=== PATIENT | female | born 1960 | race Caucasian/White ===

== ENCOUNTER 2017-06-16 14:40 | Outpatient (CLI) | payer OTHER ==
--- NOTE | 2017-06-17 09:16 | XRAY Report ---
COMPLETE CERVICAL SPINE: 06/16/2017 CLINICAL INDICATION: Arm and neck pain. FINDINGS: AP, lateral, oblique, and odontoid views of the cervical spine demonstrate moderate degene rative disk and facet disease, with degenerative anterolisthesis of C4 on C5 by approximately 4 mm. T here is bilateral osseous neural foraminal encroachment, from C4-5 to C6-7 bilaterally. There is no e vidence of acute fracture or subluxation. The prevertebral soft tissues are unremarkable. IMPRESSION: MODERATE DEGENERATIVE CHANGES, WITH BILATERAL OSSEOUS NEURAL FORAMINAL NARROWING AND DEG ENERATIVE ANTEROLISTHESIS OF C4 ON C5. JOB #: [id number] EXT JOB #:[id number]
== END 2017-06-16 14:41 | disposition home or self-care (01) ==
LOC: DI.S 14:40
PROVIDERS: ATTEND Nurse Practitioner Family
DX: M50.321 Other cervical disc degeneration at C4-C5 level (principal); M79.602 Pain in left arm
CPT/HCPCS: 72040

== ENCOUNTER 2017-08-16 13:31 | Outpatient (CLI) | payer OTHER ==
--- NOTE | 2017-08-16 16:27 | XRAY Report ---
TWO-VIEW CHEST: 08/16/2017 CLINICAL INDICATION: Fever, congestion. FINDINGS: Frontal and lateral views of the chest demonstrate a normal cardiac silhouette. The lungs are hyperinflated. There is a calcified granuloma in the right upper lobe. No focal infiltrate, ef fusion, or pneumothorax is present. IMPRESSION: HYPERINFLATION, SUGGESTIVE OF COPD. NO EVIDENCE OF ACUTE CARDIOPULMONARY DISEASE. JOB #: [id number] EXT JOB #:[id number]
== END 2017-08-16 13:32 | disposition home or self-care (01) ==
LOC: DI.S 13:31
PROVIDERS: ATTEND Nurse Practitioner Family
DX: R50.9 Fever, unspecified (principal); R09.89 Other specified symptoms and signs involving the circulatory and respiratory systems
CPT/HCPCS: 71020

== ENCOUNTER 2017-11-16 15:53 | Outpatient (CLI) | payer OTHER ==
--- NOTE | 2017-11-18 18:25 | Mammography Report ---
DIGITAL SCREENING MAMMOGRAM: 11/16/2017 CLINICAL INDICATION: A 56-year-old for screening. COMPARISON: 08/2014, 10/2012, 10/2011. TECHNIQUE: Routine CC and MLO projections were obtained of the breasts. FINDINGS: Scattered fibroglandular tissue is present within the breasts. There are no dominant masses, suspicious microcalcifications, or secondary signs of malignancy. In comparison to the previous studies, there are no significant changes. ASSESSMENT: NO MAMMOGRAPHIC EVIDENCE OF MALIGNANCY. NO SIGNIFICANT INTERVAL CHANGES. RECOMMENDATION: Screening mammography is recommended annually. BIRADS category 1 - negative. STANDARD QUALIFYING STATEMENTS: 1. This examination was reviewed with the aid of Computed-Aided Detection (CAD). 2. A negative or benign imaging report should not delay biopsy if clinically suspicious findings are present. Consider surgical consultation if warranted. More than 5% of cancers are not identified by imaging. 3. Dense breasts may obscure an underlying neoplasm. TD: 11/18/2017 18:24
== END 2017-11-16 15:54 | disposition home or self-care (01) ==
LOC: DI.S 15:53
PROVIDERS: ATTEND Physician Assistant
DX: Z12.31 Encounter for screening mammogram for malignant neoplasm of breast (principal)
CPT/HCPCS: 77067

== ENCOUNTER 2019-09-18 13:50 | Outpatient (CLI) | payer OTHER ==
--- NOTE | 2019-09-19 17:16 | XRAY Report ---
Reason: PAIN IN LEFT KNEE Procedure Date: 09/18/2019 Accession Number: [id number] / [id number] Procedure: XRS - Knee 4 View LT CPT Code: Final Report FULL RESULT: EXAM: LEFT KNEE RADIOGRAPHY EXAM DATE: 09/18/2019 02:26 PM. CLINICAL HISTORY: PAIN IN LEFT KNEE. COMPARISON: KNEE 4 VIEW RT 09/18/2019 2:29 PM. TECHNIQUE: 4 views. FINDINGS: Bones: Normal. No fractures or bone lesions. Joints: Normal. No large effusion. No subluxations. Soft Tissues: Normal. No soft tissue swelling. IMPRESSION: Negative left knee radiography. RADIA
--- NOTE | 2019-09-19 17:16 | XRAY Report ---
Reason: PAIN IN RIGHT KNEE Procedure Date: 09/18/2019 Accession Number: [id number] / [id number] Procedure: XRS - Knee 4 View RT CPT Code: Final Report FULL RESULT: EXAM: RIGHT KNEE RADIOGRAPHY EXAM DATE: 09/18/2019 02:26 PM. CLINICAL HISTORY: PAIN IN RIGHT KNEE. COMPARISON: None. TECHNIQUE: 4 views. FINDINGS: Bones: Normal. No fractures or bone lesions. Joints: Normal. No large effusion. No subluxations. Soft Tissues: Normal. No soft tissue swelling. IMPRESSION: Negative right knee radiography. RADIA
== END 2019-09-18 13:51 | disposition home or self-care (01) ==
LOC: DI.S 13:50
PROVIDERS: ATTEND Physician Assistant
DX: M25.561 Pain in right knee (principal); M25.562 Pain in left knee

== ENCOUNTER 2020-06-12 10:58 | Outpatient (CLI) | payer BC ==
--- NOTE | 2020-06-13 06:36 | Mammography Report ---
BILATERAL DIGITAL SCREENING MAMMOGRAM 3D/2D: 06/12/2020 CLINICAL: Routine screening. Comparison is made to exams dated: 08/24/2014 mammogram, 11/16/2017 mammogram, 10/17/2012 mammogram, mammogram, and 01/27/2008 mammogram - [facility]. There are scattered fibro glandular elements in both breasts. No significant masses, calcifications, or other findings are seen in either breast. There has been no significant interval change. IMPRESSION: NEGATIVE There is no mammographic evidence of malignancy. A 1 year screening mammogram is recommended. This exam was interpreted at Station ID: [id number]. NOTE: For mammograms, a report in lay terms will be sent to the patient. Approximately 15% of breast malignancies will not be visualized mammographically. In the management of a palpable breast mass, a negative mammogram must not discourage biopsy of a clinically suspicious lesion. Electronically Signed By: Stevie Liao M.D., [email or web address]:06/12/2020 13:07:42 ACR BI-RADS Category 1: Negative 3341F PARENCHYMAL PATTERN: (A) - The breast(s) demonstrate(s) scattered fibroglandular densities. BI-RADS CATEGORY: (1) - 1 RECOMMENDATION: (ANNUAL) - Recommend routine annual screening mammography. [id number] 1 year screening LATERALITY: (B)
== END 2020-06-12 10:59 | disposition home or self-care (01) ==
LOC: DI 10:58
DX: Z12.31 Encounter for screening mammogram for malignant neoplasm of breast (principal)
CPT/HCPCS: 77063; 77067

== ENCOUNTER 2023-06-22 12:57 | Outpatient (CLI) | payer MEDICARE ==
--- NOTE | 2023-06-23 10:23 | Mammography Report ---
BILATERAL DIGITAL SCREENING MAMMOGRAM 3D/2D: 06/22/2023 CLINICAL: Routine screening. Family history of breast cancer. Comparison is made to exams dated: 06/12/2020 mammogram, 11/16/2017 mammogram, and 08/24/2014 mammogram - [facility]. There are scattered areas of fibroglandular density in both breasts (category b / 25%-50% glandular t issue). No significant masses, calcifications, or other findings are seen in either breast. There has been no significant interval change. IMPRESSION: NEGATIVE There is no mammographic evidence of malignancy. A 1 year screening mammogram is recommended. Based on the Tyrer Cuzick model (a risk assessment model) the patients lifetime risk is 10.6% and he r 10 year risk is 4.9%. According to the ACR, ACS, and NCCN guidelines, an annual breast MRI exam sadiq ng with mammogram is recommended if the patients lifetime risk is 20% or greater. This exam was interpreted at Station ID: [id number]. NOTE: For mammograms, a report in lay terms will be sent to the patient. Approximately 15% of breast malignancies will not be visualized mammographically. In the management of a palpable breast mass, a negative mammogram must not discourage biopsy of a clinically suspicious lesion. Electronically Signed By: Geovanna quinonez/cyn:06/22/2023 14:31:03 letter sent: No_Letter ACR BI-RADS Category 1: Negative 3341F PARENCHYMAL PATTERN: (A) - The breast(s) demonstrate(s) scattered fibroglandular densities. BI-RADS CATEGORY: (1) - 1 Mammogram [id number] 1 year screening LATERALITY: (B)
== END 2023-06-22 12:58 | disposition home or self-care (01) ==
LOC: DI.S 12:57
DX: Z12.31 Encounter for screening mammogram for malignant neoplasm of breast (principal); Z80.3 Family history of malignant neoplasm of breast

== ENCOUNTER 2024-01-01 00:38 | Emergency (ER) | payer MEDICARE, MEDICAID ==
[2024-01-01 01:29] LABS: BASOPHILS % (AUTO) 0.2 %; EOSINOPHILS % (AUTO) 0.1 %; HGB - HEMOGLOBIN 12.7 g/dL (12.0-16.0); LYMPHOCYTES # (AUTO) 1.1 10^3/uL (1.5-3.5); LYMPHOCYTES % (AUTO) 8.2 %; MEAN CORPUSCULAR HEMOGLOBIN 28.9 pg (27.0-31.0); MEAN CORPUSCULAR HGB CONC 33.4 g/dL (32.0-36.0); MEAN CORPUSCULAR VOLUME 86.4 fL (81.0-99.0); MEAN PLATELET VOLUME 10.6 fL (7.9-10.8); MONOCYTES # (AUTO) 1.1 10^3/uL (0.0-1.0); MONOCYTES % (AUTO) 8.5 %; NEUTROPHILS % (AUTO) 82.5 %; PLT - PLATELET COUNT 543 10^3/uL (130-450); RED CELL DISTRIBUTION WIDTH 12.7 % (12.0-15.0); WHITE BLOOD COUNT 13.3 x10^3/uL (4.8-10.8)
[2024-01-01 01:35] LABS: LIPASE < 10 U/L (11-82)
[2024-01-01] MEDS: SODIUM CHLORIDE 0.9% 1,000 ML IV STA (01:37)
[2024-01-01] MEDS: FAMOTIDINE 20 MG/2 ML VIAL IVP STA (01:37)
[2024-01-01] MEDS: HYDROmorphone 1 MG/ML CARPUJECT IVP STA ×2 (01:37→03:30)
[2024-01-01] MEDS: ONDANSETRON 4 MG/2 ML VIAL IVP STA ×2 (01:39→03:29)
[2024-01-01 01:45] LABS: ALBUMIN 4.1 g/dL (3.2-5.5); ALBUMIN/GLOBULIN RATIO 1.2 (1.0-2.2); ALKALINE PHOSPHATASE 91 IU/L (42-121); ALT ALANINE AMINOTRANSFERASE 13 IU/L (10-60); AST ASPARTATE AMINOTRANSFERASE 14 IU/L (10-42); BILIRUBIN,TOTAL 0.6 mg/dL (0.2-1.0); BUN - BLOOD UREA NITROGEN 38 mg/dL (6-20); CALCIUM 10.5 mg/dL (8.5-10.3); CARBON DIOXIDE - CO2 25 mmol/L (21-32); CHLORIDE 89 mmol/L (101-111); GLUCOSE 143 mg/dL (74-104); POTASSIUM 3.1 mmol/L (3.5-4.5); SODIUM 130 mmol/L (135-145); TOTAL PROTEIN 7.6 g/dL (6.4-8.9)
[2024-01-01 02:00] LABS: GFR - MDRD 56 (>89)
[2024-01-01] MEDS: POTASSIUM CHLORIDE 20 MEQ/15 ML UDC PO STA (02:47)
[2024-01-01] MEDS: POTASSIUM CHLOR 10 MEQ/100 ML 10 MEQ/100 ML BAG IV STA (02:47)
[2024-01-01] MEDS: GABAPENTIN 100 MG CAPSULE PO STA (03:30)
--- NOTE | 2024-01-01 03:38 | ED Physician Documentation ---
History of Present Illness - Stated complaint Stated Complaint: VOMITING/R SHOULDER PX - Chief complaint Chief Complaint: Abd Pain - History obtained from History obtained from: Patient, Family (daughter) - Additonal information Additional information: 63yF with pmh scoliosis, fibromyalgia, p/w n/v X 4 days and inability to take her medications. also with subjective fever/chills. denies diarrhea. no blood in emesis. denies abdominal pain but states her fibromyalgia has been worse than usual. PD PAST MEDICAL HISTORY - Past Medical History Past Medical History: Yes Cardiovascular: Hypertension Respiratory: COPD, Other Endocrine/Autoimmune: None GI: None : None HEENT: None Psych: Depression, Anxiety Musculoskeletal: Scoliosis Derm: None Other Past Medical History: fibromyalgia - Past Surgical History Past Surgical History: Yes General: Appendectomy, Other Ortho: Rotator cuff repair, Arthroscopic surgery /[employer]: Tubal ligation, Hysterectomy, Oophrectomy - Present Medications Home Medications: Ambulatory Orders Medication Instructions Recorded Confirmed Guaifenesin mg PO DAILY 08/18/13 08/18/13 Hydrocodone/Acetaminophen 0.5 - 1 each PO Q4H PRN 08/18/13 08/18/13 [Hydrocodon-Acetaminophen 5-500] Ibuprofen 600 mg PO BID PRN 08/18/13 08/18/13 Multivitamin [Multivitamins] 1 each PO DAILY 08/18/13 08/18/13 Vitamin B Complex [Super B-50 1 each PO DAILY 08/18/13 08/18/13 Complex] Vitamin E 400 unit PO DAILY 08/18/13 08/18/13 Zinc [Zinc Chelated] 50 mg PO DAILY 08/18/13 08/18/13 Acetaminophen [Tylenol] 650 mg PO Q6H PRN 08/21/13 08/21/13 Diclofenac Sodium 50 mg PO BID #40 04/18/23 Diclofenac Sodium 50 mg PO BID #40 tab 04/18/23 hydroCHLOROthiazide [Hydrodiuril] 25 mg PO DAILY 30 Days #30 tablet 04/18/23 oxyCODONE [Roxicodone] 5 mg PO Q6H PRN #18 tablet 04/18/23 Promethazine Sup [Phenergan Supp] 12.5 mg IN Q4H PRN #10 supp 01/01/24 - Allergies Allergies/Adverse Reactions: Allergies Allergy/AdvReac Type Severity Reaction Status Date / Time adhesive Allergy rash/bliste Verified 01/01/24 01:06 rs codeine [Codeine] Allergy swelling/it Verified 01/01/24 01:06 ch diphenhydramine HCl * Allergy Anxiety Verified 01/01/24 01:06 [From Benadryl] erythromycin base Allergy Unknown Verified 01/01/24 01:06 [From Erythrocin] naproxen Allergy Anxiety Verified 01/01/24 01:06 - Social History Does the pt smoke?: Yes Smoking Status: Current every day smoker Does the pt drink ETOH?: No Does the pt have substance abuse?: No - Immunizations Immunizations are current?: Yes - POLST Patient has POLST: No PD ED PE NORMAL - Vitals Vital signs reviewed: Yes - General General: Alert and oriented X 3, No acute distress, Well developed/nourished - HEENT HEENT: Atraumatic, PERRL, EOMI - Neck Neck: Supple, no meningeal sign - Cardiac Cardiac: RRR - Respiratory Respiratory: No respiratory distress, Clear bilaterally - Abdomen Abdomen: Non tender, Non distended - Back Back: Other (severe scoliosis) - Derm Derm: Normal color, Warm and dry - Extremities Extremities: No deformity Results - Vitals Vitals: Vital Signs - 24 hr 01/01/24 01/01/24 01:02 01:06 Temperature 36.9 C Heart Rate 109 H 110 H Respiratory 18 19 Rate Blood Pressure 129/90 H 129/90 H O2 Saturation 93 98 Oxygen O2 Source Room air - Labs Labs: Laboratory Tests 01/01/24 01/01/24 01:10 01:10 WBC 13.3 H RBC 4.40 Hgb 12.7 Hct 38.0 MCV 86.4 MCH 28.9 MCHC 33.4 RDW 12.7 Plt Count 543 H MPV 10.6 Neut # (Auto) 11.0 H Lymph # (Auto) 1.1 L [place] # (Auto) 1.1 H Eos # (Auto) 0.0 Baso # (Auto) 0.0 Absolute Nucleated RBC 0.00 Nucleated RBC % 0.0 Sodium 130 L Potassium 3.1 L Chloride 89 L Carbon Dioxide 25 Anion Gap 16.0 H BUN 38 H Creatinine 1.0 Estimated GFR (MDRD) 56 L Glucose 143 H Calcium 10.5 H Total Bilirubin 0.6 AST 14 ALT 13 Alkaline Phosphatase 91 Total Protein 7.6 Albumin 4.1 Globulin 3.5 Albumin/Globulin Ratio 1.2 Lipase < 10 L PD Medical Decision Making - ED course ED course: 63yF p/w nbnb n/v X 4 days with subjective fever/chills, found to have wbc 13.3. physical exam including abdominal exam was benign, pointing to likely viral gastroenteritis as the cause. She does have some thrombocytosis, likely reactive with PLT 543. She was given IVF for hyponatremia likely due to dehydration, and also received potassium supplementation for K 3.1. Advised recheck with her pcp. nausea and pain improved s/p dilaudid and zofran. plan to f/u pm&r for pain management of her shoulder and back/neck pain. return precautions given. Departure - Departure Disposition: 01 Home, Self Care Clinical Impression: Nausea, Fibromyalgia Condition: Stable Instructions: Nausea Vomit Control Follow-Up: Ernestina Bustillos MD [Physician No Access] - Prescriptions: Promethazine Sup [Phenergan Supp] 12.5 mg IN Q4H PRN #10 supp PRN Reason: Nausea / Vomiting Comments: You were seen in the emergency department for medical evaluation. Prescription sent to [facility] in [place]. 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 I am providing a referral to a physical medicine and rehabilitation (PM&R) physician from the [facility]. If they are not in network, you can call your insurance or ask your primary care provider for a referral to PM&R. There are many well trained specialists in our area that may be able to help. Please follow-up with your primary care provider as well and return to the emergency department if you have any new or worsening symptoms or other concerns.
[2024-01-01 04:48] VITALS: BP 106/85; O2SAT 94
== END 2024-01-01 04:10 | disposition home or self-care (01) ==
LOC: ED 00:38
DX: M79.7 Fibromyalgia (principal); R11.0 Nausea; I10 Essential (primary) hypertension; F17.200 Nicotine dependence, unspecified, uncomplicated
CPT/HCPCS: 36415; 80053; 83690; 83735; 85025; 96374; 96375; 96376; 99284; 99285; A9270; J1170

== ENCOUNTER 2024-01-02 15:26 | Outpatient (CLI) | payer MEDICARE | END 2024-01-02 23:59 | disposition critical access hospital (66) | LOC: EMS 15:26 | DX: R06.00 Dyspnea, unspecified (principal); M54.9 Dorsalgia, unspecified; M25.511 Pain in right shoulder | CPT/HCPCS: A0425; A0429 ==

== ENCOUNTER 2024-01-02 16:03 | Inpatient (IN) | payer MEDICARE ==
--- NOTE | 2024-01-02 16:38 | ED Physician Documentation ---
PD HPI DYSPNEA - Stated complaint Stated Complaint: SOA - Chief complaint Chief Complaint: Resp - History obtained from History obtained from: Patient, Family - History of Present Illness Pain level max: 0 Pain level now: 0 Improved by: O2, Rest Associated symptoms: Wheezing. No: Fever, Cough, Hemoptysis, Chest pain / discomfort, Palpitations, Diaphoresis, Bilateral edema, Unilateral edema Similar symptoms before: Diagnosis (copd) - Additional information Additional information: 63-year-old female presents to the emergency department with increasing dyspnea over the past several days. She states that she saw her PCP and was prescribed albuterol and Advair discus. History of COPD. She states that she has the albuterol but no spacer. She also states that the Advair has not arrived as she is waiting for it to come in the mail. She called 911 for difficulty breathing. EMS placed her on oxygen but no other treatment was given. No fevers. No changes in her cough. No congestion. Worse with movement, better with rest. No chest pain. No calf pain or swelling. She states that she quit smoking 4 days ago. 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, Hysterectomy, Oophrectomy - Present Medications Home Medications: Ambulatory Orders Medication Instructions Recorded Confirmed Guaifenesin mg PO DAILY 08/18/13 08/18/13 Hydrocodone/Acetaminophen 0.5 - 1 each PO Q4H PRN 08/18/13 08/18/13 [Hydrocodon-Acetaminophen 5-500] Ibuprofen 600 mg PO BID PRN 08/18/13 08/18/13 Multivitamin [Multivitamins] 1 each PO DAILY 08/18/13 08/18/13 Vitamin B Complex [Super B-50 1 each PO DAILY 08/18/13 08/18/13 Complex] Vitamin E 400 unit PO DAILY 08/18/13 08/18/13 Zinc [Zinc Chelated] 50 mg PO DAILY 08/18/13 08/18/13 Acetaminophen [Tylenol] 650 mg PO Q6H PRN 08/21/13 08/21/13 Diclofenac Sodium 50 mg PO BID #40 04/18/23 Diclofenac Sodium 50 mg PO BID #40 tab 04/18/23 hydroCHLOROthiazide [Hydrodiuril] 25 mg PO DAILY 30 Days #30 tablet 04/18/23 oxyCODONE [Roxicodone] 5 mg PO Q6H PRN #18 tablet 04/18/23 Promethazine Sup [Phenergan Supp] 12.5 mg MO Q4H PRN #10 supp 01/01/24 - Allergies Allergies/Adverse Reactions: Allergies Allergy/AdvReac Type Severity Reaction Status Date / Time adhesive Allergy rash/bliste Verified 01/02/24 16:17 rs codeine [Codeine] Allergy swelling/it Verified 01/02/24 16:17 ch diphenhydramine HCl * Allergy Anxiety Verified 01/02/24 16:17 [From Benadryl] erythromycin base Allergy Unknown Verified 01/02/24 16:17 [From Erythrocin] naproxen Allergy Anxiety Verified 01/02/24 16:17 - Social History Does the pt smoke?: Yes Smoking Status: Current every day smoker Does the pt drink ETOH?: No Does the pt have substance abuse?: No - Immunizations Immunizations are current?: Yes - POLST Patient has POLST: No PD ED PE NORMAL - Vitals Vital signs reviewed: Yes - General General: Alert and oriented X 3, No acute distress - HEENT HEENT: PERRL, Moist mucous membranes - Neck Neck: Supple, no meningeal sign - Cardiac Cardiac: RRR - Respiratory Respiratory: Other (Absent breath sounds on the right, diminished breath sounds on the left) - Abdomen Abdomen: Soft, Non tender, Non distended - Derm Derm: Warm and dry - Extremities Extremities: No edema, No calf tenderness / cord - Neuro Neuro: Alert and oriented X 3 - Psych Psych: Normal mood, Normal affect Results - Vitals Vitals: Vital Signs - 24 hr 01/02/24 01/02/24 01/02/24 16:05 16:09 16:14 Temperature 36.6 C Heart Rate 99 Respiratory 22 Rate Blood Pressure 109/83 H O2 Saturation 86 L 92 85 L If not protocol : Oxygen Flow, liters/minute 01/02/24 01/02/24 01/02/24 16:15 16:50 19:00 Temperature Heart Rate 96 98 Respiratory 28 H 20 Rate Blood Pressure 110/82 H O2 Saturation 93 94 If not protocol 2 2 2 : Oxygen Flow, liters/minute Oxygen O2 Source Nasal cannula Oxygen Flow Rate 2 - EKG (time done) 1657 EKG releavant findings:: EKG personally interpreted by author of this note. Relevant findings are: Rate: Rate (enter#) (95) Rhythm: NSR [place]: Normal Intervals: Normal MO QRS: Normal Ischemia: Normal ST segments, Q waves (v1-2) - Labs Labs: Laboratory Tests 01/02/24 01/02/24 01/02/24 16:41 16:41 16:41 WBC 9.5 RBC 3.53 L Hgb 10.2 L Hct 31.7 L MCV 89.8 MCH 28.9 MCHC 32.2 RDW 13.1 Plt Count 423 MPV 9.7 Neut # (Auto) 7.5 H Lymph # (Auto) 1.0 L [place] # (Auto) 0.9 Eos # (Auto) 0.0 Baso # (Auto) 0.1 Absolute Nucleated RBC 0.00 Nucleated RBC % 0.0 Sodium 132 L Potassium 3.0 L Chloride 93 L Carbon Dioxide 29 Anion Gap 10.0 BUN 39 H Creatinine 1.3 Estimated GFR (MDRD) 41 L Glucose 115 H Calcium 9.6 Total Bilirubin 0.4 AST 18 ALT 17 Alkaline Phosphatase 77 Troponin I High Sens B-Natriuretic Peptide 125 H Total Protein 6.4 Albumin 3.5 Globulin 2.9 Albumin/Globulin Ratio 1.2 Nasal Adenovirus (PCR) Nasal B. parapertussis DNA (PCR) Nasal Coronavir 229E PCR Nasal Coronavir HKU1 PCR Nasal Coronavir NL63 PCR Nasal Coronavir OC43 PCR Nasal Enterovir/Rhinovir PCR Nasal Influenza B PCR Nasal Influenza A PCR Nasal Parainfluen 1 PCR Nasal Parainfluen 2 PCR Nasal Parainfluen 3 PCR Nasal Parainfluen 4 PCR Nasal RSV (PCR) Nasal B.pertussis DNA PCR Nasal C.pneumoniae (PCR) Eusebio Human Metapneumo PCR Nasal M.pneumoniae (PCR) Nasal SARS-CoV-2 (PCR) 01/02/24 01/02/24 16:41 16:53 WBC RBC Hgb Hct MCV MCH MCHC RDW Plt Count MPV Neut # (Auto) Lymph # (Auto) [place] # (Auto) Eos # (Auto) Baso # (Auto) Absolute Nucleated RBC Nucleated RBC % Sodium Potassium Chloride Carbon Dioxide Anion Gap BUN Creatinine Estimated GFR (MDRD) Glucose Calcium Total Bilirubin AST ALT Alkaline Phosphatase Troponin I High Sens 12.8 B-Natriuretic Peptide Total Protein Albumin Globulin Albumin/Globulin Ratio Nasal Adenovirus (PCR) NOT DETECTED Nasal B. parapertussis DNA (PCR) NOT DETECTED Nasal Coronavir 229E PCR NOT DETECTED Nasal Coronavir HKU1 PCR NOT DETECTED Nasal Coronavir NL63 PCR NOT DETECTED Nasal Coronavir OC43 PCR NOT DETECTED Nasal Enterovir/Rhinovir PCR NOT DETECTED Nasal Influenza B PCR NOT DETECTED Nasal Influenza A PCR NOT DETECTED Nasal Parainfluen 1 PCR NOT DETECTED Nasal Parainfluen 2 PCR NOT DETECTED Nasal Parainfluen 3 PCR NOT DETECTED Nasal Parainfluen 4 PCR NOT DETECTED Nasal RSV (PCR) NOT DETECTED Nasal B.pertussis DNA PCR NOT DETECTED Nasal C.pneumoniae (PCR) NOT DETECTED Eusebio Human Metapneumo PCR NOT DETECTED Nasal M.pneumoniae (PCR) NOT DETECTED Nasal SARS-CoV-2 (PCR) NOT DETECTED - Rads (name of study) CT chest Relevant Findings:: Final report received, See rad report Chest x-ray Relevant Findings:: Final report received, See rad report PD Medical Decision Making - ED course Complexity details: reviewed results, re-evaluated patient, considered differential, d/w patient, d/w legal consultant Reviewed Lab Results: Patient's high sensitive troponin and BNP are negative. Respiratory PCR is negative as well. ED course: Patient is a 63-year-old female who presents to the emergency department with increasing dyspnea over the past several days. She was given a DuoNeb treatment here. Chest x-ray reveals a large right-sided pleural effusion. CT chest confirms this. She is in no respiratory distress at this time, but is requiring supplemental oxygen. We will admit the patient for thoracentesis tomorrow and further evaluation of the pleural fluid. Discussed the case with the hospitalist Dr. Kaur, who graciously accepts. This document was made in part using voice recognition software. While efforts are made to proofread this document, sound alike and grammatical errors may occur. Departure - Departure Disposition: 64 [facility] DC/Xfer Clinical Impression: Pleural effusion, Hypoxia COPD (chronic obstructive pulmonary disease) Qualifiers: COPD type: unspecified COPD Qualified Code(s): J44.9 - Chronic obstructive pulmonary disease, unspecified Condition: Stable Discharge Date/Time: 01/02/24 20:31
[2024-01-02] MEDS: predniSONE 20 MG TABLET PO STA (16:41)
[2024-01-02 16:46] LABS: BASOPHILS # (AUTO) 0.1 10^3/uL (0.0-0.1); BASOPHILS % (AUTO) 0.6 %; EOSINOPHILS % (AUTO) 0.4 %; HCT - HEMATOCRIT 31.7 % (37.0-47.0); HGB - HEMOGLOBIN 10.2 g/dL (12.0-16.0); LYMPHOCYTES % (AUTO) 10.8 %; MEAN CORPUSCULAR HEMOGLOBIN 28.9 pg (27.0-31.0); MEAN CORPUSCULAR HGB CONC 32.2 g/dL (32.0-36.0); MEAN CORPUSCULAR VOLUME 89.8 fL (81.0-99.0); MEAN PLATELET VOLUME 9.7 fL (7.9-10.8); MONOCYTES # (AUTO) 0.9 10^3/uL (0.0-1.0); MONOCYTES % (AUTO) 9.3 %; NEUTROPHILS # (AUTO) 7.5 10^3/uL (1.5-6.6); NEUTROPHILS % (AUTO) 78.6 %; PLT - PLATELET COUNT 423 10^3/uL (130-450); RED BLOOD COUNT 3.53 10^6/uL (4.20-5.40); RED CELL DISTRIBUTION WIDTH 13.1 % (12.0-15.0); WHITE BLOOD COUNT 9.5 x10^3/uL (4.8-10.8)
[2024-01-02] MEDS: IPRATROPIUM/ALBUTEROL 3 ML NEB INH STA (16:50)
[2024-01-02] MEDS ORDERED: iohexoL-300 100 ML VIAL ONE (16:52)
--- NOTE | 2024-01-02 16:56 | XRAY Report ---
PROCEDURE: Chest 1V INDICATIONS: dyspnea TECHNIQUE: One view of the chest was acquired. COMPARISON: 04/18/2020. FINDINGS: Surgical changes and devices: None. Lungs and pleura: Large right pleural effusion nearly comes in the entirety of the right hemithorax. There is a small amount of aerated lung near the apex. Left lung is clear. Mediastinum: Mediastinal contours are mildly shifted to the left. Heart size is normal. Bones and chest wall: No suspicious bony lesions. Overlying soft tissues appear unremarkable. IMPRESSION: Large right pleural effusion involving almost the entirety of the right hemithorax with mild mediasti nal shift to the left. Reviewed by: Morris Hollingsworth MD on 01/02/2024 4:54 PM PDT Approved by: Morris Hollingsworth MD on 01/02/2024 4:54 PM PDT Station ID: [id number]
[2024-01-02 17:01] LABS: ALBUMIN 3.5 g/dL (3.2-5.5); ALBUMIN/GLOBULIN RATIO 1.2 (1.0-2.2); BILIRUBIN,TOTAL 0.4 mg/dL (0.2-1.0); CALCIUM 9.6 mg/dL (8.5-10.3); CREATININE 1.3 mg/dL (0.6-1.3); TOTAL PROTEIN 6.4 g/dL (6.4-8.9)
--- NOTE | 2024-01-02 17:41 | CT Report ---
PROCEDURE: Chest W INDICATIONS: R sided pleural effusion CONTRAST: 100ml omni 300 TECHNIQUE: After the administration of intravenous contrast, a CT scan of the chest was performed. Images were recorded and evaluated at appropriate window settings. Reformats: axial MIP of the chest, coronal and sagittal. For radiation dose reduction, the following was used: automated exposure control, adjustme nt of mA and/or kV according to patient size. COMPARISON: Same day chest x-ray FINDINGS: Image quality: Diagnostic. Chest wall and lower neck: No thyroid nodule which requires sonographic follow up. No axillary or sup raclavicular adenopathy by size. Lungs and pleura: Large right pleural effusion with near-complete collapse of the right lung. There i s small aerated right upper lobe near the apex. There is mild leftward mediastinal shift. There are s cattered areas of high attenuation within the large pleural effusion which are nonspecific. Mediastinum: Heart size is normal. No pericardial effusion. No large vessel abnormality. Paratracheal lymph node measuring 1.2 cm in short axis (2/35). Bones: No aggressive osseous abnormality. Degenerative changes of the spine. Diffusely decreased osse ous mineralization. Dextroscoliotic curvature. Upper Abdomen: Unremarkable. IMPRESSION: 1.Large right pleural effusion with near-complete collapse of the right lung. No definite underlying mass is seen. Scattered areas of hyperattenuation are seen within the large pleural effusion, nonspec ific and attention on follow-up is recommended. 2.Mildly enlarged mediastinal lymph nodes, nonspecific and may be reactive, metastatic cannot entirel y be excluded. Reviewed by: Morris Thomas MD on 01/02/2024 5:40 PM PDT Approved by: Morris Thomas MD on 01/02/2024 5:40 PM PDT Station ID: [id number]
[2024-01-02] MEDS: iohexoL-300 100 ML VIAL IVP ONE (17:51)
[2024-01-02 18:07] LABS: B. PARAPERTUSSIS- RESP PCR PAN NOT DETECTED; B. PERTUSSIS- RESP PCR PANEL NOT DETECTED; C. PNEUMONIAE- RESP PCR PANEL NOT DETECTED; CORONAVIRUS 229E-RESP PCR NOT DETECTED; CORONAVIRUS HKU1-RESP PCR NOT DETECTED; CORONAVIRUS NL63-RESP PCR NOT DETECTED; CORONAVIRUS OC43-RESP PCR NOT DETECTED; HUMAN METAPNEUMOVIRUS NOT DETECTED; INFLUENZA A- RESP PCR PANEL NOT DETECTED; INFLUENZA B - RESP PCR PANEL NOT DETECTED; M. PNEUMONIAE- RESP PCR PANEL NOT DETECTED; PARAINFLUENZA VIRUS 1 NOT DETECTED; PARAINFLUENZA VIRUS 2 NOT DETECTED; PARAINFLUENZA VIRUS 3 NOT DETECTED; PARAINFLUENZA VIRUS 4 NOT DETECTED; RHINOVIRUS/ENTEROVIRUS NOT DETECTED; RSV- RESP PCR PANEL NOT DETECTED; SARS-CoV-2 -RESP PCR PANEL NOT DETECTED
[2024-01-02] MEDS: HYDROmorphone 1 MG/ML CARPUJECT IVP STA (18:35)
--- NOTE | 2024-01-02 19:28 | HISTORY & PHYSICAL EXAMINATION ---
Chief Complaint - Chief Complaint Chief Complaint: Shortness of Breath History of Present Illness - Admitted From Admitted From:: ER - History Obtained From Records Reviewed: Yes History obtained from: Patient, staff, chart Exam Limitations: Virtual exam - History of Present Illness HPI Comment/Other: H&P was conducted via video remotely, using Access Cart. Patient is in [place]. Physician is in [place]. Pt's son Jose at bedside. 63 yo F with PMH of COPD, tob use, HTN, Fibromyalgia, DJD, Cervical Radiculopathy, Anxiety/Depression presented to the ER via EMS with c/o 1 week h/o increased Shortness of breath. Pt now thinks that she has had a gradual increase of Shortness of breath over 2 months, worse with activity. +increasing weakness, +increasing fatigue over 2 months, as well. No swelling in legs. Her PCP prescribed Albuterol MDI and Advair MDI. Pt has also had joint pains, mostly in her shoulders and neck increasing over 8 months, for which she has been taking Gabapentin, Oxycodone. She does not like taking Gabapentin and has been weaning herself off it. She rarely takes Oxycodone. Yesterday, she came to the ER for increased R shoulder pain, as well as N/V. She was given anti-emetics. Pt also notes that she has been constipated with occasional small, hard BMs x 2 weeks. No CP, cough, F/C. No abdo pain. Pt quit tobacco this week. EMS placed her on O2. In the ER, SpO2 85% RA, 92% 2L NC O2, Hgb 10, Na 132, K 3, BNP 125, Trop 12.8 EKG: NSR at 95, no STTw changes CXR: lg R pleural effusion CT Chest: Lg R pleural effusion with lung collapse, med LN Pt was given O2, Duonebs, Prednisone, Dilaudid in the ER. 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: Tubal ligation, Hysterectomy, Oophrectomy - POLST Patient has POLST: No Meds/Allgy - Home Medications Home Medications: Ambulatory Orders Medication Instructions Recorded Confirmed Guaifenesin mg PO DAILY 08/18/13 08/18/13 Hydrocodone/Acetaminophen 0.5 - 1 each PO Q4H PRN 08/18/13 08/18/13 [Hydrocodon-Acetaminophen 5-500] Ibuprofen 600 mg PO BID PRN 08/18/13 08/18/13 Multivitamin [Multivitamins] 1 each PO DAILY 08/18/13 08/18/13 Vitamin B Complex [Super B-50 1 each PO DAILY 08/18/13 08/18/13 Complex] Vitamin E 400 unit PO DAILY 08/18/13 08/18/13 Zinc [Zinc Chelated] 50 mg PO DAILY 08/18/13 08/18/13 Acetaminophen [Tylenol] 650 mg PO Q6H PRN 08/21/13 08/21/13 Diclofenac Sodium 50 mg PO BID #40 04/18/23 Diclofenac Sodium 50 mg PO BID #40 tab 04/18/23 hydroCHLOROthiazide [Hydrodiuril] 25 mg PO DAILY 30 Days #30 tablet 04/18/23 oxyCODONE [Roxicodone] 5 mg PO Q6H PRN #18 tablet 04/18/23 Promethazine Sup [Phenergan Supp] 12.5 mg SC Q4H PRN #10 supp 01/01/24 - Allergies Allergies/Adverse Reactions: Allergies Allergy/AdvReac Type Severity Reaction Status Date / Time adhesive Allergy rash/bliste Verified 01/02/24 16:17 rs codeine [Codeine] Allergy swelling/it Verified 01/02/24 16:17 ch diphenhydramine HCl * Allergy Anxiety Verified 01/02/24 16:17 [From Benadryl] erythromycin base Allergy Unknown Verified 01/02/24 16:17 [From Erythrocin] naproxen Allergy Anxiety Verified 01/02/24 16:17 Review of Systems - All Other Systems All Other Systems: reports: Reviewed and negative Exam - Vital Signs Reviewed Vital Signs: Yes Vital Signs: Vital Signs x48h Temp Pulse Resp BP Pulse Ox O2 Flow Rate 01/02/24 19:00 98 20 110/82 H 94 2 01/02/24 16:50 96 28 H 2 01/02/24 16:15 93 2 01/02/24 16:14 85 L 01/02/24 16:09 36.6 C 99 22 109/83 H 92 01/02/24 16:05 86 L - Physical Exam General Appearance: positive: Mild distress, Other (Mild SOB with speaking) Eyes Bilateral: positive: EOMI, No scleral icterus Respiratory: positive: Other (Access cart stethoscope not working; per ER Provider: Very diminished breath sounds bilaterally) Cardiovascular: positive: Other (Access cart stethoscope not working; per ER Provider: RRR, no murmurs) Abdomen: positive: Other (per ER Provider: non-distended, NT, Soft) Extremities: positive: Other (per ER Provider: moves all extrem, no edema) Neurologic/Psychiatric: positive: Oriented x3, Mood/affect nml, Other (per ER Provider: NFD) Conclusion/Plan - Problem List (1) Pleural effusion Conclusion/Plan: R Pleural Effusion Shortness of breath Hypoxia Fatigue Weakness -SpO2 85% RA, 92% 2L NC O2, Na 132, BNP 125, Trop 12.8 -EKG: NSR at 95, no STTw changes -CXR: lg R pleural effusion -CT Chest: Lg R pleural effusion with lung collapse, med LN -Pt was given O2, Duonebs, Prednisone, Dilaudid in the ER. -admit to Med Tele -Diet ordered for now; NPO p MN for possible procedure in AM -IR Thoracentesis order placed for diagnostic and therapeutic reasons -O2 support PRN COPD Tob use -Duonebs PRN -continue home meds: steroid MDI -Prednisone 60 mg QD -pt quit tobacco this week Anemia, normocytic -Hgb 10 -iron studies, B12, Folate ordered Hypokalemia -K 3 -supplement now and PRN Constipation -stool softeners ordered HTN -hold home medications: HCTZ d/t Hyponatremia Fibromyalgia Cervical Radiculopathy DJD Shoulder pain -continue home medications: Oxycodone -Dilaudid PRN Anxiety/Depression -supportive care VTE Prophylaxis: SCDs only d/t possible upcoming procedure Code Status: D/W pt; she is Full Code ~Milvia Kaur MD Hospitalist - Lab Results Lab results reviewed: Yes Fish Bones: 01/02/24 16:41 01/02/24 16:41
[2024-01-02] MEDS ORDERED: ONDANSETRON ODT 4 MG TABLET TL PRN (19:41)
[2024-01-02] MEDS ORDERED: ONDANSETRON 4 MG/2 ML VIAL IVP PRN (19:41)
[2024-01-02] MEDS ORDERED: PROMETHAZINE 12.5 MG PR PRN (19:44)
[2024-01-02 20:16] LABS: PARTIAL THROMBOPLASTIN TIME 39.6 secs (24.9-33.3)
[2024-01-02] MEDS ORDERED: DOCUSATE SODIUM 100 MG CAPSULE PO PRN (20:16)
[2024-01-02] MEDS ORDERED: polyethylene glycoL 3350 17 GM PACKET PO PRN (20:16)
[2024-01-02 20:21] LABS: INR 1.3 (0.8-1.2); PT - PROTHROMBIN TIME 14.1 secs (9.9-12.6)
[2024-01-02] MEDS: POTASSIUM CHLORIDE 20 MEQ TABLET PO STA (20:53)
[2024-01-02] MEDS: oxyCODONE 5 MG TABLET PO PRN (20:54)
[2024-01-03] MEDS: SODIUM CHLORIDE FLUSH 0.9% 10 ML SYRINGE IVP SCH (00:51)
[2024-01-03] MEDS: HYDROmorphone 0.5 MG/0.5 ML SYRINGE IVP PRN (00:51)
[2024-01-03] MEDS ORDERED: HYDROmorphone 0.5 MG/0.5 ML SYRINGE IVP PRN (05:21)
[2024-01-03] MEDS: IPRATROPIUM/ALBUTEROL 3 ML NEB INH PRN (06:53)
[2024-01-03] MEDS: BUDESONIDE 0.5 MG/2 ML NEB INH SCH (06:53)
--- NOTE | 2024-01-03 08:02 | XRAY Report ---
PROCEDURE: Chest 1V INDICATIONS: Chest pain TECHNIQUE: One view of the chest was acquired. COMPARISON: CT chest dated 01/02/2024, chest radiograph dated 12/23/2023 and 04/18/2020. FINDINGS: Surgical changes and devices: None. Lungs and pleura: Again noted is near completely opacification of right hemithorax consistent with C T finding of large right pleural effusion. Left lung is clear. No pneumothorax. Mediastinum: Mediastinal contours appear normal. Heart size is normal. Bones and chest wall: No suspicious bony lesions. Overlying soft tissues appear unremarkable. IMPRESSION: Large right pleural effusion with near complete atelectasis. Left lung is clear. No gross pneumothora x. No discrepancies. Reviewed by: Declan Rodriguez MD on 01/03/2024 8:01 AM PDT Approved by: Declan Rodriguez MD on 01/03/2024 8:01 AM PDT Station ID: [id number]
[2024-01-03] MEDS: predniSONE 20 MG TABLET PO SCH (08:14)
[2024-01-03] MEDS ORDERED: VITAMIN B COMPLEX PO SCH (09:00)
[2024-01-03] MEDS ORDERED: ZINC 50 MG PO SCH (09:00)
[2024-01-03] MEDS ORDERED: VITAMIN E 400 UNIT PO SCH (09:00)
[2024-01-03 09:57] LABS: ALBUMIN 3.9 g/dL (3.2-5.5); ALBUMIN/GLOBULIN RATIO 1.2 (1.0-2.2); BILIRUBIN,TOTAL 0.4 mg/dL (0.2-1.0); CREATININE 0.8 mg/dL (0.6-1.3); POTASSIUM 3.7 mmol/L (3.5-4.5); TOTAL PROTEIN 7.2 g/dL (6.4-8.9)
[2024-01-03 10:00] LABS: BASOPHILS % (AUTO) 0.2 %; HCT - HEMATOCRIT 32.9 % (37.0-47.0); HGB - HEMOGLOBIN 10.5 g/dL (12.0-16.0); LYMPHOCYTES # (AUTO) 0.9 10^3/uL (1.5-3.5); LYMPHOCYTES % (AUTO) 7.6 %; MEAN CORPUSCULAR HEMOGLOBIN 28.5 pg (27.0-31.0); MEAN CORPUSCULAR HGB CONC 31.9 g/dL (32.0-36.0); MEAN CORPUSCULAR VOLUME 89.2 fL (81.0-99.0); MEAN PLATELET VOLUME 10.5 fL (7.9-10.8); MONOCYTES # (AUTO) 1.2 10^3/uL (0.0-1.0); MONOCYTES % (AUTO) 9.8 %; NEUTROPHILS # (AUTO) 9.9 10^3/uL (1.5-6.6); NEUTROPHILS % (AUTO) 81.7 %; PLT - PLATELET COUNT 513 10^3/uL (130-450); RED BLOOD COUNT 3.69 10^6/uL (4.20-5.40); WHITE BLOOD COUNT 12.1 x10^3/uL (4.8-10.8)
--- NOTE | 2024-01-03 10:50 | XRAY Report ---
PROCEDURE: Post Thoracentesis 1V CXR INDICATIONS: Thoracentesis TECHNIQUE: One view of the chest was acquired. COMPARISON: 01/03/2024. FINDINGS: Surgical changes and devices: None. Lungs and pleura: Large right pleural effusion with near complete atelectasis of the right lung is s imilar to prior. No pneumothorax. Left lung is clear. Mediastinum: Mediastinal contours appear normal. Heart size is normal. Bones and chest wall: No suspicious bony lesions. Overlying soft tissues appear unremarkable. IMPRESSION: Large right pleural effusion with near complete atelectasis of the right lung is similar to prior. No pneumothorax. Reviewed by: Morris Hollingsworth MD on 01/03/2024 10:49 AM PDT Approved by: Morris Hollingsworth MD on 01/03/2024 10:49 AM PDT Station ID: [id number]
[2024-01-03] MEDS: MULTIVITAMIN W/MINERALS TABLET PO SCH (10:55)
[2024-01-03] MEDS ORDERED: LIDOCAINE 1%-EPI 1:100000 20 ML MDV ONE (11:30)
--- NOTE | 2024-01-03 11:45 | PHARMACY PROGRESS NOTE ---
- Best Possible Medication History Admit Date and Time: 01/02/241940 Processed by: Pharmacy Medications reviewed in ED?: No Medication History completed: Yes Patient Interview: Completed Secondary Source(s): Written medication list, Insurance records As the person ultimately responsible for medication therapy, providers are able to order a medication from an existing home medication list in [facility] via the "Reconcile Routine" prior to Confirmation of that medication by client technical support associate. Such practice is discouraged except when the physician, in their clinical judgment, deems that a medical need exists for a medication without regard to previous use.
--- NOTE | 2024-01-03 11:57 | CONSULTATION NOTE ---
Referring Provider Name of Referring Provider:: Collins Rivera MD Consult Date: 01/03/24 Chief Complaint - Chief Complaint Chief Complaint: shortness of breath History of Present Illness - Admitted From Admitted From:: ED - History Obtained From History obtained from: patient and primary team - History of Present Illness HPI Comment/Other: 63yoF with several months of progressive shortness of breath, ultimately prompting presentation to the ED last night where she was found by CXR and CT chest to have a large right pleural effusion and near total collapse of the right lung, along with hypoxia and a 6L supplemental O2 requirement. She went to radiology for an US-guided thoracentesis this morning where only 60cc of bloody fluid were withdrawn secondary to loculations (fluid sent for cytology/culture). Concern for malignant pleural effusion, though no mass visable on CT at this time (obscured by effusion anyway). Primary team asked me to place a chest tube to aid with more thorough evacuation of pleural effusion/hemothorax. Patient has no history of trauma. 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: Tubal ligation, Hysterectomy, Oophrectomy - POLST Patient has POLST: No Meds/Allgy - Home Medications Home Medications: Ambulatory Orders Medication Instructions Recorded Confirmed Hydrocodone/Acetaminophen 0.5 - 1 each PO Q4H PRN 08/18/13 01/03/24 [Hydrocodon-Acetaminophen 5-500] Multivitamin [Multivitamins] 1 each PO DAILY 08/18/13 01/03/24 hydroCHLOROthiazide [Hydrodiuril] 25 mg PO DAILY 30 Days #30 tablet 04/18/23 01/03/24 Albuterol Sulfate [Proventil Hfa] 2 puffs INH Q6H PRN 01/03/24 01/03/24 Atorvastatin [Lipitor] 20 mg PO QPM 01/03/24 01/03/24 Azelastine HCl [Astepro Allergy] 2 spr JULIANA DAILY 01/03/24 01/03/24 Cyclobenzaprine [Flexeril] 5 - 10 mg PO TID PRN 01/03/24 01/03/24 Fluticasone Propion/Salmeterol 1 puffs INH BID 01/03/24 01/03/24 [Fluticasone-Salmeterol 250-50] Gabapentin [Neurontin] 300 mg PO DAILY 01/03/24 01/03/24 Gabapentin [Neurontin] 600 mg PO HS 01/03/24 01/03/24 Levothyroxine Sodium [Synthroid] 50 mcg PO QDAC 01/03/24 01/03/24 Lidocaine Patch 5% [Lidoderm Patch] 1 each TOP DAILY PRN 01/03/24 01/03/24 Losartan [Cozaar] 50 mg PO DAILY 01/03/24 01/03/24 Montelukast [Singulair] 10 mg PO QPM 01/03/24 01/03/24 - Allergies Allergies/Adverse Reactions: Allergies Allergy/AdvReac Type Severity Reaction Status Date / Time adhesive Allergy rash/bliste Verified 01/02/24 16:17 rs codeine [Codeine] Allergy swelling/it Verified 01/02/24 16:17 ch diphenhydramine HCl * Allergy Anxiety Verified 01/02/24 16:17 [From Benadryl] erythromycin base Allergy Unknown Verified 01/02/24 16:17 [From Erythrocin] naproxen Allergy Anxiety Verified 01/02/24 16:17 Review of Systems - Constitutional Constitutional: reports: Fatigue - Respiratory Respiratory: reports: SOB at rest, SOB with exertion - Musculoskeletal Musculoskeletal: reports: Back pain, Joint pain Exam - Vital Signs Reviewed Vital Signs: Yes Vital Signs: Vital Signs x48h Temp Pulse Pulse Resp BP Pulse Ox O2 Flow Rate 01/03/24 08:00 36.7 C 103 H 20 132/83 H 93 5 01/03/24 06:50 90 20 5 01/03/24 05:11 99 12 94 6 01/03/24 04:49 28 H 91 L 5 01/03/24 04:41 36.6 C 92 26 H 130/82 H 90 L 3.5 01/03/24 04:11 36.6 C 102 H 23 132/77 H 92 3.5 - Physical Exam General Appearance: positive: No acute distress Eyes Bilateral: positive: Normal inspection, PERRL ENT: positive: ENT inspection nml, Pharynx nml, No signs of dehydration Neck: positive: Nml inspection, Thyroid nml, No JVD, Trachea midline Respiratory: positive: Chest non-tender. negative: Breath sounds nml (dimished on right side) Cardiovascular: positive: Regular rate & rhythm, No murmur, No gallop Abdomen: positive: Non-tender, No organomegaly, Nml bowel sounds, No distention Skin: positive: Color nml, No rash, Warm, Dry Extremities: positive: Non-tender, Full ROM, Nml appearance Neurologic/Psychiatric: positive: Oriented x3, Mood/affect nml Conclusion and Plan - Lab Results Laboratory Results 01/03/24 09:17: Sodium 133 L, Potassium 3.7, Chloride 93 L, Carbon Dioxide 30, Anion Gap 10.0, BUN 23 H, Creatinine 0.8, Estimated GFR (MDRD) 72 L, Glucose 109 H, Calcium 10.0, Total Bilirubin 0.4, AST 18, ALT 18, Alkaline Phosphatase 79, Total Protein 7.2, Albumin 3.9, Globulin 3.3, Albumin/Globulin Ratio 1.2 01/03/24 09:17: WBC 12.1 H, RBC 3.69 L, Hgb 10.5 L, Hct 32.9 L, MCV 89.2, MCH 28.5, MCHC 31.9 L, RDW 13.0, Plt Count 513 H, MPV 10.5, Neut # (Auto) 9.9 H, Lymph # (Auto) 0.9 L, [place] # (Auto) 1.2 H, Eos # (Auto) 0.0, Baso # (Auto) 0.0, Absolute Nucleated RBC 0.00, Nucleated RBC % 0.0 01/03/24 04:49: Vitamin B12 2493 H, Folate 29.1 01/02/24 20:02: PT 14.1 H, INR 1.3 H, APTT 39.6 H 01/02/24 16:53: Nasal Adenovirus (PCR) NOT DETECTED, Nasal B. parapertussis DNA (PCR) NOT DETECTED, Nasal Coronavir 229E PCR NOT DETECTED, Nasal Coronavir HKU1 PCR NOT DETECTED, Nasal Coronavir NL63 PCR NOT DETECTED, Nasal Coronavir OC43 PCR NOT DETECTED, Nasal Enterovir/Rhinovir PCR NOT DETECTED, Nasal Influenza B PCR NOT DETECTED, Nasal Influenza A PCR NOT DETECTED, Nasal Parainfluen 1 PCR NOT DETECTED, Nasal Parainfluen 2 PCR NOT DETECTED, Nasal Parainfluen 3 PCR NOT DETECTED, Nasal Parainfluen 4 PCR NOT DETECTED, Nasal RSV (PCR) NOT DETECTED, Nasal B.pertussis DNA PCR NOT DETECTED, Nasal C.pneumoniae (PCR) NOT DETECTED, Juliana Human Metapneumo PCR NOT DETECTED, Nasal M.pneumoniae (PCR) NOT DETECTED, Nasal SARS-CoV-2 (PCR) NOT DETECTED 01/02/24 16:41: Troponin I High Sens 12.8 01/02/24 16:41: B-Natriuretic Peptide 125 H 01/02/24 16:41: Sodium 132 L, Potassium 3.0 L, Chloride 93 L, Carbon Dioxide 29, Anion Gap 10.0, BUN 39 H, Creatinine 1.3, Estimated GFR (MDRD) 41 L, Glucose 115 H, Calcium 9.6, Total Bilirubin 0.4, AST 18, ALT 17, Alkaline Phosphatase 77, Total Protein 6.4, Albumin 3.5, Globulin 2.9, Albumin/Globulin Ratio 1.2 01/02/24 16:41: WBC 9.5, RBC 3.53 L, Hgb 10.2 L, Hct 31.7 L, MCV 89.8, MCH 28.9, MCHC 32.2, RDW 13.1, Plt Count 423, MPV 9.7, Neut # (Auto) 7.5 H, Lymph # (Auto) 1.0 L, [place] # (Auto) 0.9, Eos # (Auto) 0.0, Baso # (Auto) 0.1, Absolute Nucleated RBC 0.00, Nucleated RBC % 0.0 - Diagnostic Imaging Results Diagnostic Imaging Results: positive: Final report reviewed, Read independently Diagnostic Imaging Results Comments: CXR and CT chest demonstrate right pleural effusion with near complete collapse of the right lung - Diagnosis Diagnosis: Right pleural effusion - Plan Plan: Right pleural effusion - hemothorax by character of 60cc fluid obtained via thoracentesis this morning (too loculated to get any additional fluid) - concern for malignancy pleural effusion (fluid studies pending, no mass on imaging to date) - associated hypoxia - patient consents to right tube thoracostomy placement at bedside under local anesthetic - discussed with Dr. Rivera (IM) that TPA adminstration may be needed to aid with drainage pending severity of loculations Dinorah Lopez DO FACS General Surgery
--- NOTE | 2024-01-03 13:10 | POST OP PROGRESS NOTE ---
Subjective - General Admit Date: 01/02/24 Procedure Date: 01/03/24 Post Op Days: 0 Procedure Performed: Right tube thoracostomy placement (chest tube placement) - Review of Systems Drain Type: 32F Chest tube placed into the right pleural space Drain Output Description: serosanguinous fluid Approximate mls Output: 200 All Other Systems: positive: Reviewed and negative - Other Other Information/Narrative: Indication: RIght pleural effusion and hypoxia Preprocedural diagnosis: Right pleural effusion Postprocedural diagnosis: same Description: Patient was consented for right tube thoracostomy placement. 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 The right chest was prepped and draped, then injected with 1% lidocaine with epinephrine. A 2cm incision was made at the 5th ICS at the right midaxillary line. A Cleopatra clamp was used to spread the soft tissues, feel the rib, and enter the pleural space sharply above the rib. A finger sweep confirmed position within the pleural cavity and broke up some loculations, afterwhich a bosch of serosang uinous fluid flowed from the pleural space. At this point a 32F chest tube was advanced into the pleural space and then connected to a pleurevac which was placed to suction for a few minutes and then transitioned to waterseal to avoid rapid reexpansion of the lung. The tube was sutured in place and an occlusive dressing was placed. The patient tolerating the procedure and there were no complications. A postprocedural chest XR is pending. Dinorah Lopez DO, FACS General Surgeon
[2024-01-03] MEDS: ACETAMINOPHEN 325 MG TABLET PO PRN (13:23)
--- NOTE | 2024-01-03 13:40 | XRAY Report ---
PROCEDURE: Chest for Line Placement INDICATIONS: post placement of right chest tube TECHNIQUE: One view of the chest was acquired. COMPARISON: None. FINDINGS: Surgical changes and devices: There is interval placement of a right-sided chest tube, the tip is ne ar right hilar region. Lungs and pleura: There is interval decrease in amount of right-sided pleural effusion with slightly improved right lung aeration. Moderate to large persistent right pleural effusion is seen. Left lung remains clear. No gross pneumothorax. Mediastinum: Mediastinal contours appear normal. Heart size is normal. Bones and chest wall: No suspicious bony lesions. Overlying soft tissues appear unremarkable. IMPRESSION: Interval placement of a right-sided chest tube with interval decrease in amount of right pleural effu cesar. No gross pneumothorax. Reviewed by: Declan Rodriguez MD on 01/03/2024 1:39 PM PDT Approved by: Declan Rodriguez MD on 01/03/2024 1:39 PM PDT Station ID: [id number]
--- NOTE | 2024-01-03 14:32 | Ultrasound Report ---
PROCEDURE: Thoracentesis Puncture INDICATIONS: R Pleural Effusion TECHNIQUE: The indications, alternatives, benefits, risks, and complications of the procedure were explained to the patient. Written informed consent was obtained and placed in the chart. The chest was examined sonographically, and an appropriate site was chosen for thoracentesis. The skin was prepared and adriana ped in the usual sterile fashion, and 1% lidocaine was infiltrated from the skin down through the ple ural surface. A 19-gauge catheter-covered needle was then introduced into the pleural space, the cat heter was advanced and the needle was withdrawn, and thereafter pleural fluid was aspirated. The cat heter was then removed and a dressing was applied. COMPARISON: Chest CT 01/02/2024 FINDINGS: Access site: Right hemithorax. Needle: One-Step centesis catheter with introducer needle. Fluid volume and description: 60 cc hemorrhagic Fluid sent for diagnostic testing: Yes Medications: 1% lidocaine for local anaesthesia. Complications: None; post-procedural chest radiograph is pending to assess for pneumothorax. IMPRESSION: Successful ultrasound-guided thoracentesis. Reviewed by: Yue Brown MD on 01/03/2024 2:31 PM PDT Approved by: Yue Brown MD on 01/03/2024 2:31 PM PDT Station ID: [id number]
[2024-01-03] MEDS: SODIUM CHLORIDE FLUSH 0.9% 10 ML SYRINGE IVP PRN (19:26)
--- NOTE | 2024-01-03 21:56 | PROVIDER PROGRESS NOTE ---
Assessment/Plan - Problem List (1) Pleural effusion Assessment/Plan: Yolis Phipps has a large right pleural effusion. Thoracentesis performed by radiology today revealed significant loculations. Approximately 60 mL of a bloody fluid was obtained and sent for cytology and other laboratory studies. Appreciate placement of chest tube by Dr. Lopez. General surgery will manage chest tube. Continue to follow the resolution of her pleural effusion. It is highly likely that she may need to be transferred to a higher level of care so that she could receive either tPA/dornase through the test chest tube or have a surgical consultation with a cardiothoracic surgeon for possible VATS procedure. (2) COPD Continue DuoNebs as needed. At this point I do not feel that patient is having a COPD exacerbation and does not require prednisone.Prednisone has been discontinued. - Current Meds Current Meds: Current Medications Generic Name Dose Route Start Last Admin Trade Name Freq PRN Reason Stop Dose Admin Acetaminophen 650 mg 01/02/24 19:41 01/03/24 21:40 Acetaminophen 325 Mg Tablet PO 650 mg Q4HR PRN Administration Pain 1 to 4, or Fever Albuterol/Ipratropium 3 ml 01/02/24 19:55 01/03/24 06:53 Ipratropium/Albuterol 3 Ml Neb INH 3 ml Q4HR PRN Administration Wheezing Budesonide 0.5 mg 01/03/24 07:00 01/03/24 18:58 Budesonide 0.5 Mg/2 Ml Neb INH 0.5 mg RTBID LATONYA Administration Hydromorphone HCl 0.5 mg 01/02/24 19:41 01/03/24 19:26 Hydromorphone 0.5 Mg/0.5 Ml Syringe IVP 0.5 mg Q4H PRN Administration Pain 8 to 10 Multivitamins/Minerals 1 tab 01/03/24 08:00 01/03/24 10:55 Multivitamin W/Minerals Tablet PO 1 tab DAILYWM LATONYA Administration Oxycodone HCl 5 mg 01/02/24 19:44 01/03/24 17:31 Oxycodone 5 Mg Tablet PO 5 mg Q6H PRN Administration PAIN 5-7 Prednisone 60 mg 01/03/24 09:00 01/03/24 08:14 Prednisone 20 Mg Tablet PO 60 mg DAILY LATONYA Administration Sodium Chloride 10 ml 01/02/24 19:41 01/03/24 19:26 Sodium Chloride Flush 0.9% 10 Ml Syringe IVP 10 ml PRN PRN Administration NEEDED PER PROVIDER ORDERS Sodium Chloride 10 ml 01/03/24 01:00 01/03/24 16:36 Sodium Chloride Flush 0.9% 10 Ml Syringe IVP 10 ml 0100,0900,1700 LATONYA Administration - Lab Result Fish Bone Diagrams: 01/03/24 09:17 01/03/24 09:17 - Additional Planning My Orders: My Active Orders 01/03/24 General Surgery Consult [CONS] Routine CELL COUNT, BF [BF] Routine GRAM STAIN [RM] Routine TOTAL PROTEIN,CSF [BF] Routine 01/03/24 10:10 ANAEROBIC AND AEROBIC CULTURE [REFLAB] Routine GLUCOSE BODY FLUID [REFLAB] Routine LD BODY FLUID [REFLAB] Routine pH BODY FLUID [REFLAB] Routine 01/03/24 Dinner Regular Diet [DIET] Subjective - Subjective Patient Reports: Other (Alert. Complaining of pain at the insertion site of chest tube. Complains of pain in her right wrist that appears to be chronic. No other complaints at this time.) Objective Vital Signs: Vital Signs - 24 hr 01/02/24 01/03/24 01/03/24 23:40 00:00 02:07 Temperature 36.6 C Heart Rate Heart Rate [ 99 94 Brachial] Respiratory 18 Rate Blood Pressure 113/76 [Left Brachial artery] O2 Saturation 93 93 If not protocol 3 3 3 : Oxygen Flow, liters/minute 01/03/24 01/03/24 01/03/24 04:11 04:41 04:49 Temperature 36.6 C 36.6 C Heart Rate Heart Rate [ 102 H 92 Brachial] Respiratory 23 26 H 28 H Rate Blood Pressure 132/77 H 130/82 H [Left Brachial artery] O2 Saturation 92 90 L 91 L If not protocol 3.5 3.5 5 : Oxygen Flow, liters/minute 01/03/24 01/03/24 01/03/24 05:11 06:50 08:00 Temperature 36.7 C Heart Rate 90 Heart Rate [ 99 103 H Brachial] Respiratory 12 20 20 Rate Blood Pressure 132/83 H [Left Brachial artery] O2 Saturation 94 93 If not protocol 6 5 5 : Oxygen Flow, liters/minute 01/03/24 01/03/24 01/03/24 15:58 19:02 20:29 Temperature 37.0 C 36.7 C Heart Rate 79 Heart Rate [ 90 95 Brachial] Respiratory 20 17 24 Rate Blood Pressure 103/76 113/66 [Left Brachial artery] O2 Saturation 96 93 If not protocol 8 4 4 : Oxygen Flow, liters/minute Oxygen O2 Source Nasal cannula Oxygen Flow Rate 2 I&O (Last 24 Hrs): Intake and Output Totals x24h 01/01/24 01/02/24 01/03/24 23:59 23:59 23:59 Intake Total 400 468 Output Total 230 Balance 400 238 General: Alert, Oriented x3, No acute distress Neck: No thyromegaly Neuro: Alert Cardiovascular: Other (Positive S1-S2 no extra heart sounds) Respiratory: Other (Diminished breath sounds in all guidry of the right lung. Left lung is clear with no wheezing no crackles.) Abdomen: Other (Soft nontender nondistended positive bowel) Extremities: No cyanosis, No edema Skin: No rashes - Results Results: Laboratory Results WBC 12.1 x10^3/uL (4.8-10.8) H 01/03/24 09:17 RBC 3.69 10^6/uL (4.20-5.40) L 01/03/24 09:17 Hgb 10.5 g/dL (12.0-16.0) L 01/03/24 09:17 Hct 32.9 % (37.0-47.0) L 01/03/24 09:17 MCV 89.2 fL (81.0-99.0) 01/03/24 09:17 MCH 28.5 pg (27.0-31.0) 01/03/24 09:17 MCHC 31.9 g/dL (32.0-36.0) L 01/03/24 09:17 RDW 13.0 % (12.0-15.0) 01/03/24 09:17 Plt Count 513 10^3/uL (130-450) H 01/03/24 09:17 MPV 10.5 fL (7.9-10.8) 01/03/24 09:17 Neut # (Auto) 9.9 10^3/uL (1.5-6.6) H 01/03/24 09:17 Lymph # (Auto) 0.9 10^3/uL (1.5-3.5) L 01/03/24 09:17 [place] # (Auto) 1.2 10^3/uL (0.0-1.0) H 01/03/24 09:17 Eos # (Auto) 0.0 10^3/uL (0.0-0.7) 01/03/24 09:17 Baso # (Auto) 0.0 10^3/uL (0.0-0.1) 01/03/24 09:17 Absolute Nucleated RBC 0.00 x10^3/uL 01/03/24 09:17 Nucleated RBC % 0.0 /100WBC 01/03/24 09:17 PT 14.1 secs (9.9-12.6) H 01/02/24 20:02 INR 1.3 (0.8-1.2) H 01/02/24 20:02 APTT 39.6 secs (24.9-33.3) H 01/02/24 20:02 Sodium 133 mmol/L (135-145) L 01/03/24 09:17 Potassium 3.7 mmol/L (3.5-4.5) 01/03/24 09:17 Chloride 93 mmol/L (101-111) L 01/03/24 09:17 Carbon Dioxide 30 mmol/L (21-32) 01/03/24 09:17 Anion Gap 10.0 (6-13) 01/03/24 09:17 BUN 23 mg/dL (6-20) H 01/03/24 09:17 Creatinine 0.8 mg/dL (0.6-1.3) 01/03/24 09:17 Estimated GFR (MDRD) 72 (>89) L 01/03/24 09:17 Glucose 109 mg/dL (74-104) H 01/03/24 09:17 Calcium 10.0 mg/dL (8.5-10.3) 01/03/24 09:17 Total Bilirubin 0.4 mg/dL (0.2-1.0) 01/03/24 09:17 AST 18 IU/L (10-42) 01/03/24 09:17 ALT 18 IU/L (10-60) 01/03/24 09:17 Alkaline Phosphatase 79 IU/L (42-121) 01/03/24 09:17 Troponin I High Sens 12.8 ng/L (2.3-14.8) 01/02/24 16:41 B-Natriuretic Peptide 125 pg/mL (5-100) H 01/02/24 16:41 Total Protein 7.2 g/dL (6.4-8.9) 01/03/24 09:17 Albumin 3.9 g/dL (3.2-5.5) 01/03/24 09:17 Globulin 3.3 g/dL (2.1-4.2) 01/03/24 09:17 Albumin/Globulin Ratio 1.2 (1.0-2.2) 01/03/24 09:17 Vitamin B12 2493 pg/mL (180-914) H 01/03/24 04:49 Folate 29.1 ng/mL (5.90 - >24.8) 01/03/24 04:49 Nasal Adenovirus (PCR) NOT DETECTED 01/02/24 16:53 Nasal B. parapertussis DNA (PCR) NOT DETECTED 01/02/24 16:53 Nasal Coronavir 229E PCR NOT DETECTED 01/02/24 16:53 Nasal Coronavir HKU1 PCR NOT DETECTED 01/02/24 16:53 Nasal Coronavir NL63 PCR NOT DETECTED 01/02/24 16:53 Nasal Coronavir OC43 PCR NOT DETECTED 01/02/24 16:53 Nasal Enterovir/Rhinovir PCR NOT DETECTED 01/02/24 16:53 Nasal Influenza B PCR NOT DETECTED 01/02/24 16:53 Nasal Influenza A PCR NOT DETECTED 01/02/24 16:53 Nasal Parainfluen 1 PCR NOT DETECTED 01/02/24 16:53 Nasal Parainfluen 2 PCR NOT DETECTED 01/02/24 16:53 Nasal Parainfluen 3 PCR NOT DETECTED 01/02/24 16:53 Nasal Parainfluen 4 PCR NOT DETECTED 01/02/24 16:53 Nasal RSV (PCR) NOT DETECTED 01/02/24 16:53 Nasal B.pertussis DNA PCR NOT DETECTED 01/02/24 16:53 Nasal C.pneumoniae (PCR) NOT DETECTED 01/02/24 16:53 Eusebio Human Metapneumo PCR NOT DETECTED 01/02/24 16:53 Nasal M.pneumoniae (PCR) NOT DETECTED 01/02/24 16:53 Nasal SARS-CoV-2 (PCR) NOT DETECTED 01/02/24 16:53 - Procedures Procedures: Procedures EXC LES SOFT TISSUE NEC (08/21/13)
[2024-01-03] MEDS ORDERED: LORATADINE 10 MG TABLET PO PRN (22:10)
[2024-01-03] MEDS: GABAPENTIN 300 MG CAPSULE PO SCH (22:29)
[2024-01-04 05:59] LABS: BASOPHILS % (AUTO) 0.2 %; EOSINOPHILS % (AUTO) 0.1 %; HCT - HEMATOCRIT 30.4 % (37.0-47.0); HGB - HEMOGLOBIN 10.1 g/dL (12.0-16.0); LYMPHOCYTES # (AUTO) 1.5 10^3/uL (1.5-3.5); LYMPHOCYTES % (AUTO) 15.1 %; MEAN CORPUSCULAR HEMOGLOBIN 29.4 pg (27.0-31.0); MEAN CORPUSCULAR HGB CONC 33.2 g/dL (32.0-36.0); MEAN CORPUSCULAR VOLUME 88.6 fL (81.0-99.0); MEAN PLATELET VOLUME 10.7 fL (7.9-10.8); NEUTROPHILS # (AUTO) 7.3 10^3/uL (1.5-6.6); PLT - PLATELET COUNT 465 10^3/uL (130-450); RED BLOOD COUNT 3.43 10^6/uL (4.20-5.40); WHITE BLOOD COUNT 9.9 x10^3/uL (4.8-10.8)
[2024-01-04] MEDS: FORMOTEROL FUMARATE NEB 20 MCG/2 ML INH SCH (06:07)
[2024-01-04 06:20] LABS: CALCIUM 9.9 mg/dL (8.5-10.3); CREATININE 0.6 mg/dL (0.6-1.3); POTASSIUM 3.2 mmol/L (3.5-4.5)
[2024-01-04] MEDS: LEVOTHYROXINE 25 MCG TABLET PO SCH (06:35)
[2024-01-04] MEDS: PIPERACILLIN/TAZOBACTAM 3.375 GM in SODIUM CHLORIDE 0.9% MINIBAG 100 ML IV SCH (07:48)
[2024-01-04] MEDS ORDERED: ALBUTEROL NEB 2.5 MG/3 ML INH PRN (09:03)
[2024-01-04 09:04] LABS: BASOPHILS % (AUTO) 0.3 %; EOSINOPHILS % (AUTO) 0.1 %; HCT - HEMATOCRIT 34.3 % (37.0-47.0); HGB - HEMOGLOBIN 11.2 g/dL (12.0-16.0); LYMPHOCYTES # (AUTO) 1.7 10^3/uL (1.5-3.5); MEAN CORPUSCULAR HEMOGLOBIN 28.9 pg (27.0-31.0); MEAN CORPUSCULAR HGB CONC 32.7 g/dL (32.0-36.0); MEAN CORPUSCULAR VOLUME 88.4 fL (81.0-99.0); MEAN PLATELET VOLUME 9.5 fL (7.9-10.8); NEUTROPHILS # (AUTO) 9.5 10^3/uL (1.5-6.6); NEUTROPHILS % (AUTO) 76.9 %; PLT - PLATELET COUNT 528 10^3/uL (130-450); RED BLOOD COUNT 3.88 10^6/uL (4.20-5.40); WHITE BLOOD COUNT 12.3 x10^3/uL (4.8-10.8)
[2024-01-04] MEDS: NICOTINE 14 MG PATCH TOP SCH (09:06)
[2024-01-04] MEDS: AZITHROMYCIN INJ 500 MG in SODIUM CHLORIDE 0.9% 250 ML IV SCH (09:06)
[2024-01-04] MEDS: CYCLOBENZAPRINE 10 MG TABLET PO PRN (09:06)
[2024-01-04] MEDS: GABAPENTIN 300 MG CAPSULE PO SCH (09:06)
--- NOTE | 2024-01-04 09:07 | XRAY Report ---
PROCEDURE: Chest 1V INDICATIONS: Interval f/u after chest tube placement. TECHNIQUE: One view of the chest was acquired. COMPARISON: 01/03/2024, 01/02/2024. FINDINGS: Surgical changes and devices: Right-sided chest tube is again seen.. Lungs and pleura: Persistent moderate to large loculated right pleural effusion with interval improv ement in right upper lobe aeration. Near complete atelectasis of right middle and lower lobe is seen. Left lung is clear. No gross pneumothorax. Mediastinum: Mediastinal contours appear normal. Heart size is normal. Bones and chest wall: No suspicious bony lesions. Overlying soft tissues appear unremarkable. IMPRESSION: Persistent moderate to large loculated right pleural effusion with interval improvement in right uppe r lobe aeration. No pneumothorax. Left lung is clear. Reviewed by: Declan Rodriguez MD on 01/04/2024 9:06 AM PDT Approved by: Declan Rodriguez MD on 01/04/2024 9:06 AM PDT Station ID: [id number]
--- NOTE | 2024-01-04 09:12 | PROVIDER PROGRESS NOTE ---
Subjective - General Admit Date: 01/02/24 Procedure Date: 01/03/24 Post Op Days: 1 Procedure Performed: Right tube thoracostomy placement (chest tube placement) - Review of Systems Drain Type: 32F Chest tube placed into the right pleural space Drain Output Description: serosanguinous fluid, tidaling, minimal air leak, waterseal Approximate mls Output: 1L All Other Systems: positive: Reviewed and negative Objective - Patient Data Reviewed Vital Signs: Yes Vital Signs: Vital Signs x48h Temp Pulse Pulse Resp BP Pulse Ox O2 Flow Rate 01/04/24 08:25 36.8 C 104 H 18 116/69 5 01/04/24 06:15 2 01/04/24 06:10 87 17 2 01/04/24 05:21 36.5 C 103 H 20 139/88 H 94 5 Weight: Weight 01/02/24 01/03/24 01/04/24 23:59 23:59 23:59 Weight (kg) 80.5 kg Intake & Output: Intake and Output Totals x24h 01/02/24 01/03/24 01/04/24 23:59 23:59 23:59 Intake Total 904 889 6273 Output Total 455 Balance 307 54 6010 - Lab Results Lab Results: 01/04/24 04:51 01/04/24 04:51 Other Lab Results: Lab Results x24hrs 01/04/24 01/04/24 01/03/24 Range/Units 04:51 04:51 09:17 WBC 9.9 (4.8-10.8) x10^3/uL RBC 3.43 L (4.20-5.40) 10^6/uL Hgb 10.1 L (12.0-16.0) g/dL Hct 30.4 L (37.0-47.0) % MCV 88.6 (81.0-99.0) fL MCH 29.4 (27.0-31.0) pg MCHC 33.2 (32.0-36.0) g/dL RDW 13.0 (12.0-15.0) % Plt Count 465 H (130-450) 10^3/uL MPV 10.7 (7.9-10.8) fL Neut # (Auto) 7.3 H (1.5-6.6) 10^3/uL Lymph # (Auto) 1.5 (1.5-3.5) 10^3/uL [place] # (Auto) 1.0 (0.0-1.0) 10^3/uL Eos # (Auto) 0.0 (0.0-0.7) 10^3/uL Baso # (Auto) 0.0 (0.0-0.1) 10^3/uL Absolute Nucleated RBC 0.00 x10^3/uL Nucleated RBC % 0.0 /100WBC Sodium 134 L 133 L (135-145) mmol/L Potassium 3.2 L 3.7 (3.5-4.5) mmol/L Chloride 93 L 93 L (101-111) mmol/L Carbon Dioxide 32 30 (21-32) mmol/L Anion Gap 9.0 10.0 (6-13) BUN 16 23 H (6-20) mg/dL Creatinine 0.6 0.8 (0.6-1.3) mg/dL Estimated GFR (MDRD) 100 72 L (>89) Glucose 90 109 H (74-104) mg/dL Calcium 9.9 10.0 (8.5-10.3) mg/dL Iron 20 L (50-212) ug/dL TIBC 280 (250-450) ug/dL % Saturation 7 L (20-50) % Transferrin 200 L (203-362) mg/dL Total Bilirubin 0.4 (0.2-1.0) mg/dL AST 18 (10-42) IU/L ALT 18 (10-60) IU/L Alkaline Phosphatase 79 (42-121) IU/L Total Protein 7.2 (6.4-8.9) g/dL Albumin 3.9 (3.2-5.5) g/dL Globulin 3.3 (2.1-4.2) g/dL Albumin/Globulin Ratio 1.2 (1.0-2.2) 01/03/24 Range/Units 09:17 WBC 12.1 H (4.8-10.8) x10^3/uL RBC 3.69 L (4.20-5.40) 10^6/uL Hgb 10.5 L (12.0-16.0) g/dL Hct 32.9 L (37.0-47.0) % MCV 89.2 (81.0-99.0) fL MCH 28.5 (27.0-31.0) pg MCHC 31.9 L (32.0-36.0) g/dL RDW 13.0 (12.0-15.0) % Plt Count 513 H (130-450) 10^3/uL MPV 10.5 (7.9-10.8) fL Neut # (Auto) 9.9 H (1.5-6.6) 10^3/uL Lymph # (Auto) 0.9 L (1.5-3.5) 10^3/uL [place] # (Auto) 1.2 H (0.0-1.0) 10^3/uL Eos # (Auto) 0.0 (0.0-0.7) 10^3/uL Baso # (Auto) 0.0 (0.0-0.1) 10^3/uL Absolute Nucleated RBC 0.00 x10^3/uL Nucleated RBC % 0.0 /100WBC Sodium (135-145) mmol/L Potassium (3.5-4.5) mmol/L Chloride (101-111) mmol/L Carbon Dioxide (21-32) mmol/L Anion Gap (6-13) BUN (6-20) mg/dL Creatinine (0.6-1.3) mg/dL Estimated GFR (MDRD) (>89) Glucose (74-104) mg/dL Calcium (8.5-10.3) mg/dL Iron (50-212) ug/dL TIBC (250-450) ug/dL % Saturation (20-50) % Transferrin (203-362) mg/dL Total Bilirubin (0.2-1.0) mg/dL AST (10-42) IU/L ALT (10-60) IU/L Alkaline Phosphatase (42-121) IU/L Total Protein (6.4-8.9) g/dL Albumin (3.2-5.5) g/dL Globulin (2.1-4.2) g/dL Albumin/Globulin Ratio (1.0-2.2) - Imaging Results Radiology Imaging: positive: Final report received, EMP read indepedently (AM CXR with partial reexpansion of right upper lobe, no ptx, chest tube in adequate position (sentinel hole just outside of ribs but well within subQ tissue) - Current Medications Current Medications: Current Medications Generic Name Dose Route Start Last Admin Trade Name Freq PRN Reason Stop Dose Admin Acetaminophen 650 mg 01/02/24 19:41 01/04/24 06:35 Acetaminophen 325 Mg Tablet PO 650 mg Q4HR PRN Administration Pain 1 to 4, or Fever Albuterol/Ipratropium 3 ml 01/02/24 19:55 01/03/24 06:53 Ipratropium/Albuterol 3 Ml Neb INH 3 ml Q4HR PRN Administration Wheezing Budesonide 0.5 mg 01/03/24 07:00 01/04/24 06:05 Budesonide 0.5 Mg/2 Ml Neb INH 0.5 mg RTBID LATONYA Administration Cyclobenzaprine HCl 5 mg 01/03/24 22:10 01/04/24 09:06 Cyclobenzaprine 10 Mg Tablet PO 5 mg TID PRN Administration Spasms Formoterol Fumarate 20 mcg 01/04/24 07:00 01/04/24 06:07 Formoterol Fumarate Neb 20 Mcg/2 Ml INH 20 mcg RTBID LATONYA Administration Gabapentin 300 mg 01/04/24 09:00 01/04/24 09:06 Gabapentin 300 Mg Capsule PO 300 mg DAILY LATONYA Administration Gabapentin 600 mg 01/03/24 23:00 01/03/24 22:29 Gabapentin 300 Mg Capsule PO 600 mg HS LATONYA Administration Hydromorphone HCl 0.5 mg 01/02/24 19:41 01/04/24 07:47 Hydromorphone 0.5 Mg/0.5 Ml Syringe IVP 0.5 mg Q4H PRN Administration Pain 8 to 10 Azithromycin 500 mg/ Sodium 250 mls @ 250 mls/hr 01/04/24 09:00 01/04/24 09:06 Chloride IV 250 mls/hr DAILY LATONYA Administration Piperacillin Sod/Tazobactam 100 mls @ 200 mls/hr 01/04/24 08:00 01/04/24 07:48 Sod 3.375 gm/ Sodium Chloride IV 200 mls/hr Q6H LATONYA Administration Levothyroxine Sodium 50 mcg 01/04/24 07:00 01/04/24 06:35 Levothyroxine 25 Mcg Tablet PO 50 mcg QDAC LATONYA Administration Multivitamins/Minerals 1 tab 01/03/24 08:00 01/04/24 07:47 Multivitamin W/Minerals Tablet PO 1 tab DAILYWM LATONYA Administration Nicotine 1 patch 01/04/24 09:00 01/04/24 09:06 Nicotine 14 Mg Patch TOP 1 patch DAILY LATONYA Administration Oxycodone HCl 5 mg 01/02/24 19:44 01/04/24 02:13 Oxycodone 5 Mg Tablet PO 5 mg Q6H PRN Administration PAIN 5-7 Sodium Chloride 10 ml 01/02/24 19:41 01/03/24 19:26 Sodium Chloride Flush 0.9% 10 Ml Syringe IVP 10 ml PRN PRN Administration NEEDED PER PROVIDER ORDERS Sodium Chloride 10 ml 01/03/24 01:00 01/04/24 09:07 Sodium Chloride Flush 0.9% 10 Ml Syringe IVP 10 ml 0100,0900,1700 LATONYA Administration - Physical Exam Wound/Incisions: positive: Dressing dry and intact, Drainage (1L serosanguinous fluid in pleurevac) General Appearance: positive: No acute distress, Alert Respiratory: positive: Chest non-tender Abdomen: positive: Non-tender, No organomegaly, Nml bowel sounds, No distention Skin: positive: Color nml, No rash, Warm, Dry Neurologic/Psychiatric: positive: Oriented x3, Mood/affect nml Impression/Plan - Problem List Problem List: Right pleural effusion, hypoxia - right chest tube in position, functioning - continue, monitor drainage - qAM CXR Dinorah Lopez DO, FACS General Surgery
[2024-01-04 09:24] LABS: ALBUMIN 3.7 g/dL (3.2-5.5); ALBUMIN/GLOBULIN RATIO 1.2 (1.0-2.2); BILIRUBIN,TOTAL 0.5 mg/dL (0.2-1.0); CALCIUM 10.2 mg/dL (8.5-10.3); CREATININE 0.8 mg/dL (0.6-1.3); POTASSIUM 3.2 mmol/L (3.5-4.5); TOTAL PROTEIN 6.7 g/dL (6.4-8.9)
[2024-01-04 10:08] LABS: pH BODY FLUID 7.4 (Not Estab.)
[2024-01-04] MEDS: polyethylene glycoL 3350 17 GM PACKET PO SCH (11:36)
[2024-01-04] MEDS: DOCUSATE SODIUM 250 MG CAPSULE PO SCH (11:36)
[2024-01-04] MEDS: SENNA 8.6 MG TABLET PO SCH (11:37)
[2024-01-04] MEDS: POTASSIUM CHLORIDE 20 MEQ TABLET PO SCH (11:40)
--- NOTE | 2024-01-04 11:57 | PROVIDER PROGRESS NOTE ---
Assessment/Plan - Problem List (1) Pleural effusion Assessment/Plan: --s/p chest tube insertion on 01/02. --Pleural fluid analysis is currently pending. --Have added on cytology --Chest tube is set to gravity drainage. Case was discussed with general surgery who is managing her chest tube. --Exact etiology of pleural effusion is unknown. Have started her on azithromycin and Zosyn for broad spectrum antibiotic coverage until cultures return. --Daily CXR to assess lung expansion. (2) COPD (chronic obstructive pulmonary disease) Qualifiers: COPD type: unspecified COPD Qualified Code(s): J44.9 - Chronic obstructive pulmonary disease, unspecified Assessment/Plan: --Continue home inhalers. (3) Hypoxia Assessment/Plan: --Secondary to her COPD and pleural effusion. (4) Iron (Fe) deficiency anemia Assessment/Plan: --Started on oral Fe. (5) Hypothyroid Assessment/Plan: --Continue levothyroxine. (6) Hyperlipidemia Assessment/Plan: --Continue atorvastatin. - Current Meds Current Meds: Current Medications Generic Name Dose Route Start Last Admin Trade Name Freq PRN Reason Stop Dose Admin Acetaminophen 650 mg 01/02/24 19:41 01/04/24 10:42 Acetaminophen 325 Mg Tablet PO 650 mg Q4HR PRN Administration Pain 1 to 4, or Fever Albuterol/Ipratropium 3 ml 01/02/24 19:55 01/03/24 06:53 Ipratropium/Albuterol 3 Ml Neb INH 3 ml Q4HR PRN Administration Wheezing Budesonide 0.5 mg 01/03/24 07:00 01/04/24 06:05 Budesonide 0.5 Mg/2 Ml Neb INH 0.5 mg RTBID LATONYA Administration Cyclobenzaprine HCl 5 mg 01/03/24 22:10 01/04/24 09:06 Cyclobenzaprine 10 Mg Tablet PO 5 mg TID PRN Administration Spasms Docusate Sodium 250 - 500 mg 01/04/24 11:00 01/04/24 11:36 Docusate Sodium 250 Mg Capsule PO 250 mg DAILY LATONYA Administration Formoterol Fumarate 20 mcg 01/04/24 07:00 01/04/24 06:07 Formoterol Fumarate Neb 20 Mcg/2 Ml INH 20 mcg RTBID LATONYA Administration Gabapentin 300 mg 01/04/24 09:00 01/04/24 09:06 Gabapentin 300 Mg Capsule PO 300 mg DAILY LATONYA Administration Gabapentin 600 mg 01/03/24 23:00 01/03/24 22:29 Gabapentin 300 Mg Capsule PO 600 mg HS LATONYA Administration Hydromorphone HCl 0.5 mg 01/02/24 19:41 01/04/24 07:47 Hydromorphone 0.5 Mg/0.5 Ml Syringe IVP 0.5 mg Q4H PRN Administration Pain 8 to 10 Azithromycin 500 mg/ Sodium 250 mls @ 250 mls/hr 01/04/24 09:00 01/04/24 09:06 Chloride IV 250 mls/hr DAILY LATONYA Administration Piperacillin Sod/Tazobactam 100 mls @ 200 mls/hr 01/04/24 08:00 01/04/24 07:48 Sod 3.375 gm/ Sodium Chloride IV 200 mls/hr Q6H LATONYA Administration Levothyroxine Sodium 50 mcg 01/04/24 07:00 01/04/24 06:35 Levothyroxine 25 Mcg Tablet PO 50 mcg QDAC LATONYA Administration Multivitamins/Minerals 1 tab 01/03/24 08:00 01/04/24 07:47 Multivitamin W/Minerals Tablet PO 1 tab DAILYWM LATONYA Administration Nicotine 1 patch 01/04/24 09:00 01/04/24 09:06 Nicotine 14 Mg Patch TOP 1 patch DAILY LATONYA Administration Oxycodone HCl 5 mg 01/02/24 19:44 01/04/24 10:41 Oxycodone 5 Mg Tablet PO 5 mg Q6H PRN Administration PAIN 5-7 Polyethylene Glycol 17 gm 01/04/24 11:00 01/04/24 11:36 Polyethylene Glycol 3350 17 Gm Packet PO 17 gm DAILY LATONYA Administration Potassium Chloride 40 meq 01/04/24 10:00 01/04/24 11:40 Potassium Chloride 20 Meq Tablet PO 01/07/24 09:59 40 meq BID LATONYA Administration Senna 8.6 - 17.2 mg 01/04/24 11:00 01/04/24 11:37 Senna 8.6 Mg Tablet PO 8.6 mg DAILY LATONYA Administration Sodium Chloride 10 ml 01/02/24 19:41 01/03/24 19:26 Sodium Chloride Flush 0.9% 10 Ml Syringe IVP 10 ml PRN PRN Administration NEEDED PER PROVIDER ORDERS Sodium Chloride 10 ml 01/03/24 01:00 01/04/24 09:07 Sodium Chloride Flush 0.9% 10 Ml Syringe IVP 10 ml 0100,0900,1700 LATONYA Administration - Lab Result Fish Bone Diagrams: 01/04/24 08:57 01/04/24 08:57 - Additional Planning My Orders: My Active Orders 01/04/24 08:00 Piperacillin/Tazobactam [Zosyn] 3.375 gm Sodium Chloride 0.9% Minibag [Normal Saline 0.9% Minibag] 100 ml IV Q6H 01/04/24 08:58 Miscellaneous Laboratory Order [LAB] Urgent 01/04/24 09:00 Azithromycin Inj [Zithromax Inj] 500 mg Sodium Chloride 0.9% [Normal Saline 0.9%] 250 ml IV DAILY Nicotine 14 mg Patch [Nicoderm] 1 patch TOP DAILY 01/04/24 09:03 Albuterol 2.5 mg INH Q6H PRN 01/04/24 10:00 Potassium Chloride [K-Dur] 40 meq PO BID 01/05/24 05:00 BMP - BASIC METABOLIC PANEL [CHEM] DAILYLAB CBC [CBC - COMP BLD CT W/AUTO DIFF] [HEME] DAILYLAB 01/05/24 08:00 Ferrous Gluconate [Fergon] 324 mg PO DAILYWM 01/05/24 09:00 Chest 1V [XR] DAILY 01/06/24 05:00 BMP - BASIC METABOLIC PANEL [CHEM] DAILYLAB CBC [CBC - COMP BLD CT W/AUTO DIFF] [HEME] DAILYLAB 01/06/24 09:00 Chest 1V [XR] DAILY 01/07/24 05:00 BMP - BASIC METABOLIC PANEL [CHEM] DAILYLAB CBC [CBC - COMP BLD CT W/AUTO DIFF] [HEME] DAILYLAB 01/07/24 09:00 Chest 1V [XR] DAILY 01/08/24 05:00 BMP - BASIC METABOLIC PANEL [CHEM] DAILYLAB CBC [CBC - COMP BLD CT W/AUTO DIFF] [HEME] DAILYLAB Subjective - Subjective Patient Reports: Feeling Better, Resting Comfortably Objective Vital Signs: Vital Signs - 24 hr 01/03/24 01/03/24 01/03/24 15:58 19:02 20:29 Temperature 37.0 C 36.7 C Heart Rate 79 Heart Rate [ 90 95 Brachial] Respiratory 20 17 24 Rate Blood Pressure 103/76 113/66 [Left Brachial artery] O2 Saturation 96 93 If not protocol 8 4 4 : Oxygen Flow, liters/minute 01/04/24 01/04/24 01/04/24 00:00 05:21 06:10 Temperature 37.0 C 36.5 C Heart Rate 87 Heart Rate [ 102 H 103 H Brachial] Respiratory 16 20 17 Rate Blood Pressure 119/81 H 139/88 H [Left Brachial artery] O2 Saturation 93 94 If not protocol 5 5 2 : Oxygen Flow, liters/minute 01/04/24 01/04/24 06:15 08:25 Temperature 36.8 C Heart Rate Heart Rate [ 104 H Brachial] Respiratory 18 Rate Blood Pressure 116/69 [Left Brachial artery] O2 Saturation If not protocol 2 5 : Oxygen Flow, liters/minute Oxygen O2 Source Nasal cannula Oxygen Flow Rate 2 I&O (Last 24 Hrs): Intake and Output Totals x24h 01/02/24 01/03/24 01/04/24 23:59 23:59 23:59 Intake Total 775 127 7077 Output Total 455 100 Balance 400 13 920 General: Alert, No acute distress Neuro: Alert Cardiovascular: Regular rate, Normal S1, Normal S2 Respiratory: Chest non-tender Abdomen: Normal bowel sounds, Soft - Results Results: Laboratory Results WBC 12.3 x10^3/uL (4.8-10.8) H 01/04/24 08:57 RBC 3.88 10^6/uL (4.20-5.40) L 01/04/24 08:57 Hgb 11.2 g/dL (12.0-16.0) L 01/04/24 08:57 Hct 34.3 % (37.0-47.0) L 01/04/24 08:57 MCV 88.4 fL (81.0-99.0) 01/04/24 08:57 MCH 28.9 pg (27.0-31.0) 01/04/24 08:57 MCHC 32.7 g/dL (32.0-36.0) 01/04/24 08:57 RDW 13.0 % (12.0-15.0) 01/04/24 08:57 Plt Count 528 10^3/uL (130-450) H 01/04/24 08:57 MPV 9.5 fL (7.9-10.8) 01/04/24 08:57 Neut # (Auto) 9.5 10^3/uL (1.5-6.6) H 01/04/24 08:57 Lymph # (Auto) 1.7 10^3/uL (1.5-3.5) 01/04/24 08:57 [place] # (Auto) 1.0 10^3/uL (0.0-1.0) 01/04/24 08:57 Eos # (Auto) 0.0 10^3/uL (0.0-0.7) 01/04/24 08:57 Baso # (Auto) 0.0 10^3/uL (0.0-0.1) 01/04/24 08:57 Absolute Nucleated RBC 0.00 x10^3/uL 01/04/24 08:57 Nucleated RBC % 0.0 /100WBC 01/04/24 08:57 PT 14.1 secs (9.9-12.6) H 01/02/24 20:02 INR 1.3 (0.8-1.2) H 01/02/24 20:02 APTT 39.6 secs (24.9-33.3) H 01/02/24 20:02 Sodium 133 mmol/L (135-145) L 01/04/24 08:57 Potassium 3.2 mmol/L (3.5-4.5) L 01/04/24 08:57 Chloride 91 mmol/L (101-111) L 01/04/24 08:57 Carbon Dioxide 33 mmol/L (21-32) H 01/04/24 08:57 Anion Gap 9.0 (6-13) 01/04/24 08:57 BUN 17 mg/dL (6-20) 01/04/24 08:57 Creatinine 0.8 mg/dL (0.6-1.3) 01/04/24 08:57 Estimated GFR (MDRD) 72 (>89) L 01/04/24 08:57 Glucose 155 mg/dL (74-104) H 01/04/24 08:57 Calcium 10.2 mg/dL (8.5-10.3) 01/04/24 08:57 Iron 20 ug/dL (50-212) L 01/04/24 04:51 TIBC 280 ug/dL (250-450) 01/04/24 04:51 % Saturation 7 % (20-50) L 01/04/24 04:51 Transferrin 200 mg/dL (203-362) L 01/04/24 04:51 Total Bilirubin 0.5 mg/dL (0.2-1.0) 01/04/24 08:57 AST 19 IU/L (10-42) 01/04/24 08:57 ALT 18 IU/L (10-60) 01/04/24 08:57 Alkaline Phosphatase 88 IU/L (42-121) 01/04/24 08:57 Troponin I High Sens 12.8 ng/L (2.3-14.8) 01/02/24 16:41 B-Natriuretic Peptide 125 pg/mL (5-100) H 01/02/24 16:41 Total Protein 6.7 g/dL (6.4-8.9) 01/04/24 08:57 Albumin 3.7 g/dL (3.2-5.5) 01/04/24 08:57 Globulin 3.0 g/dL (2.1-4.2) 01/04/24 08:57 Albumin/Globulin Ratio 1.2 (1.0-2.2) 01/04/24 08:57 Vitamin B12 2493 pg/mL (180-914) H 01/03/24 04:49 Folate 29.1 ng/mL (5.90 - >24.8) 01/03/24 04:49 Procalcitonin Immunoas 0.10 ng/mL (<0.5) 01/04/24 08:57 Fluid pH 7.4 (Not Estab.) 01/03/24 10:10 Nasal Adenovirus (PCR) NOT DETECTED 01/02/24 16:53 Nasal B. parapertussis DNA (PCR) NOT DETECTED 01/02/24 16:53 Nasal Coronavir 229E PCR NOT DETECTED 01/02/24 16:53 Nasal Coronavir HKU1 PCR NOT DETECTED 01/02/24 16:53 Nasal Coronavir NL63 PCR NOT DETECTED 01/02/24 16:53 Nasal Coronavir OC43 PCR NOT DETECTED 01/02/24 16:53 Nasal Enterovir/Rhinovir PCR NOT DETECTED 01/02/24 16:53 Nasal Influenza B PCR NOT DETECTED 01/02/24 16:53 Nasal Influenza A PCR NOT DETECTED 01/02/24 16:53 Nasal Parainfluen 1 PCR NOT DETECTED 01/02/24 16:53 Nasal Parainfluen 2 PCR NOT DETECTED 01/02/24 16:53 Nasal Parainfluen 3 PCR NOT DETECTED 01/02/24 16:53 Nasal Parainfluen 4 PCR NOT DETECTED 01/02/24 16:53 Nasal RSV (PCR) NOT DETECTED 01/02/24 16:53 Nasal B.pertussis DNA PCR NOT DETECTED 01/02/24 16:53 Nasal C.pneumoniae (PCR) NOT DETECTED 01/02/24 16:53 Eusebio Human Metapneumo PCR NOT DETECTED 01/02/24 16:53 Nasal M.pneumoniae (PCR) NOT DETECTED 01/02/24 16:53 Nasal SARS-CoV-2 (PCR) NOT DETECTED 01/02/24 16:53 - Procedures Procedures: Procedures EXC LES SOFT TISSUE NEC (08/21/13)
[2024-01-04 20:07] LABS: GLUCOSE BODY FLUID <2 mg/dL (.); LD BODY FLUID 1845 IU/L (.)
[2024-01-04] MEDS: MONTELUKAST 10 MG TABLET PO SCH (20:23)
[2024-01-04] MEDS: ATORVASTATIN 10 MG TABLET PO SCH (20:23)
[2024-01-04] MEDS: LIDOCAINE PATCH 5% TOP PRN (22:53)
[2024-01-05] MEDS: FERROUS GLUCONATE 324 MG TABLET PO SCH (08:25)
[2024-01-05 09:30] LABS: BASOPHILS # (AUTO) 0.1 10^3/uL (0.0-0.1); BASOPHILS % (AUTO) 0.5 %; EOSINOPHILS % (AUTO) 0.2 %; HCT - HEMATOCRIT 34.3 % (37.0-47.0); HGB - HEMOGLOBIN 10.7 g/dL (12.0-16.0); LYMPHOCYTES # (AUTO) 1.3 10^3/uL (1.5-3.5); LYMPHOCYTES % (AUTO) 9.9 %; MEAN CORPUSCULAR HEMOGLOBIN 28.3 pg (27.0-31.0); MEAN CORPUSCULAR HGB CONC 31.2 g/dL (32.0-36.0); MEAN CORPUSCULAR VOLUME 90.7 fL (81.0-99.0); MEAN PLATELET VOLUME 9.5 fL (7.9-10.8); MONOCYTES # (AUTO) 0.8 10^3/uL (0.0-1.0); MONOCYTES % (AUTO) 6.6 %; NEUTROPHILS # (AUTO) 10.4 10^3/uL (1.5-6.6); PLT - PLATELET COUNT 503 10^3/uL (130-450); RED BLOOD COUNT 3.78 10^6/uL (4.20-5.40); RED CELL DISTRIBUTION WIDTH 13.2 % (12.0-15.0); WHITE BLOOD COUNT 12.7 x10^3/uL (4.8-10.8)
--- NOTE | 2024-01-05 09:51 | PROVIDER PROGRESS NOTE ---
Subjective - General Admit Date: 01/02/24 Procedure Date: 01/03/24 Post Op Days: 2 Procedure Performed: Right tube thoracostomy placement (chest tube placement) - Review of Systems Wound/Incisions: positive: Dressing dry and intact, Drainage (1L serosanguinous fluid in pleurevac) Drain Type: 32F Chest tube placed into the right pleural space Drain Output Description: serosanguinous fluid, tidaling, no air leak, waterseal Approximate mls Output: 600cc Pulmonary: positive: Other (Improved SOB, down to 2L NC from 6L) Gastrointestinal: positive: No symptoms All Other Systems: positive: Reviewed and negative - Other Other Information/Narrative: 600cc from CT last 24hrs, total 1600 since insertion. Serosanguinous/bloody effusion. Chest tube bandage changed this morning and new pleurevac set up (as expected drainage over next 24hrs may exceed remaining canister capacity). Objective - Patient Data Reviewed Vital Signs: Yes Vital Signs: Vital Signs x48h Temp Pulse Pulse Resp BP Pulse Ox O2 Flow Rate 01/05/24 07:55 36.0 C L 94 16 135/89 H 94 2 01/05/24 06:04 89 17 2 Intake & Output: Intake and Output Totals x24h 01/03/24 01/04/24 01/05/24 23:59 23:59 23:59 Intake Total 468 2020 580 Output Total 455 800 250 Balance 13 1220 330 - Lab Results Lab Results: 01/05/24 09:25 01/04/24 08:57 Other Lab Results: Lab Results x24hrs 01/05/24 01/03/24 Range/Units 09:25 10:10 WBC 12.7 H (4.8-10.8) x10^3/uL RBC 3.78 L (4.20-5.40) 10^6/uL Hgb 10.7 L (12.0-16.0) g/dL Hct 34.3 L (37.0-47.0) % MCV 90.7 (81.0-99.0) fL MCH 28.3 (27.0-31.0) pg MCHC 31.2 L (32.0-36.0) g/dL RDW 13.2 (12.0-15.0) % Plt Count 503 H (130-450) 10^3/uL MPV 9.5 (7.9-10.8) fL Neut # (Auto) 10.4 H (1.5-6.6) 10^3/uL Lymph # (Auto) 1.3 L (1.5-3.5) 10^3/uL [place] # (Auto) 0.8 (0.0-1.0) 10^3/uL Eos # (Auto) 0.0 (0.0-0.7) 10^3/uL Baso # (Auto) 0.1 (0.0-0.1) 10^3/uL Absolute Nucleated RBC 0.00 x10^3/uL Nucleated RBC % 0.0 /100WBC Fluid pH 7.4 (Not Estab.) Fluid Glucose <2 (.) mg/dL Fluid LDH 1845 (.) IU/L - Imaging Results Radiology Imaging: positive: EMP read indepedently (CXR this AM shows progressive/further expansion of the right lung as pleural effusion drains.) - Current Medications Current Medications: Current Medications Generic Name Dose Route Start Last Admin Trade Name Freq PRN Reason Stop Dose Admin Acetaminophen 650 mg 01/02/24 19:41 01/04/24 10:42 Acetaminophen 325 Mg Tablet PO 650 mg Q4HR PRN Administration Pain 1 to 4, or Fever Albuterol/Ipratropium 3 ml 01/02/24 19:55 01/03/24 06:53 Ipratropium/Albuterol 3 Ml Neb INH 3 ml Q4HR PRN Administration Wheezing Atorvastatin Calcium 20 mg 01/04/24 21:00 01/04/24 20:23 Atorvastatin 10 Mg Tablet PO 20 mg QPM LATONYA Administration Budesonide 0.5 mg 01/03/24 07:00 01/05/24 06:01 Budesonide 0.5 Mg/2 Ml Neb INH 0.5 mg RTBID LATONYA Administration Cyclobenzaprine HCl 5 mg 01/03/24 22:10 01/04/24 22:09 Cyclobenzaprine 10 Mg Tablet PO 5 mg TID PRN Administration Spasms Docusate Sodium 250 - 500 mg 01/04/24 11:00 01/05/24 08:26 Docusate Sodium 250 Mg Capsule PO 250 mg DAILY LATONYA Administration Ferrous Gluconate 324 mg 01/05/24 08:00 01/05/24 08:25 Ferrous Gluconate 324 Mg Tablet PO 324 mg DAILYWM LATONYA Administration Formoterol Fumarate 20 mcg 01/04/24 07:00 01/05/24 06:01 Formoterol Fumarate Neb 20 Mcg/2 Ml INH 20 mcg RTBID LATONYA Administration Gabapentin 300 mg 01/04/24 09:00 01/05/24 08:28 Gabapentin 300 Mg Capsule PO 300 mg DAILY LATONYA Administration Gabapentin 600 mg 01/03/24 23:00 01/04/24 20:23 Gabapentin 300 Mg Capsule PO 600 mg HS LATONYA Administration Hydromorphone HCl 0.5 mg 01/02/24 19:41 01/05/24 07:43 Hydromorphone 0.5 Mg/0.5 Ml Syringe IVP 0.5 mg Q4H PRN Administration Pain 8 to 10 Azithromycin 500 mg/ Sodium 250 mls @ 250 mls/hr 01/04/24 09:00 01/04/24 13:40 Chloride IV Infused DAILY LATONYA Infusion Piperacillin Sod/Tazobactam 100 mls @ 200 mls/hr 01/04/24 08:00 01/05/24 08:24 Sod 3.375 gm/ Sodium Chloride IV 200 mls/hr Q6H LATONYA Administration Levothyroxine Sodium 50 mcg 01/04/24 07:00 01/05/24 06:16 Levothyroxine 25 Mcg Tablet PO 50 mcg QDAC LATONYA Administration Lidocaine 1 patch 01/03/24 22:10 01/04/24 22:53 Lidocaine Patch 5% TOP 1 patch DAILY PRN Administration PAIN 1-4 Montelukast Sodium 10 mg 01/04/24 21:00 01/04/24 20:23 Montelukast 10 Mg Tablet PO 10 mg QPM LATONYA Administration Multivitamins/Minerals 1 tab 01/03/24 08:00 01/05/24 08:26 Multivitamin W/Minerals Tablet PO 1 tab DAILYWM LATONYA Administration Nicotine 1 patch 01/04/24 09:00 01/05/24 08:25 Nicotine 14 Mg Patch TOP 1 patch DAILY LATONYA Administration Oxycodone HCl 5 mg 01/02/24 19:44 01/05/24 05:33 Oxycodone 5 Mg Tablet PO 5 mg Q6H PRN Administration PAIN 5-7 Polyethylene Glycol 17 gm 01/04/24 11:00 01/05/24 08:25 Polyethylene Glycol 3350 17 Gm Packet PO 17 gm DAILY LATONYA Administration Potassium Chloride 40 meq 01/04/24 10:00 01/05/24 08:25 Potassium Chloride 20 Meq Tablet PO 01/07/24 09:59 40 meq BID LATONYA Administration Senna 8.6 - 17.2 mg 01/04/24 11:00 01/05/24 08:26 Senna 8.6 Mg Tablet PO 8.6 mg DAILY LATONYA Administration Sodium Chloride 10 ml 01/02/24 19:41 01/04/24 20:16 Sodium Chloride Flush 0.9% 10 Ml Syringe IVP 10 ml PRN PRN Administration NEEDED PER PROVIDER ORDERS Sodium Chloride 10 ml 01/03/24 01:00 01/04/24 23:54 Sodium Chloride Flush 0.9% 10 Ml Syringe IVP 10 ml 0100,0900,1700 LATONYA Administration - Physical Exam Wound/Incisions: positive: Dressing dry and intact General Appearance: positive: No acute distress, Alert Respiratory: negative: Chest non-tender (Expected tenderness around chest tube site and with drain manipulation for dressing change.) Cardiovascular: positive: Regular rate & rhythm Abdomen: positive: Non-tender, No organomegaly, Nml bowel sounds, No distention Neurologic/Psychiatric: positive: Oriented x3, Mood/affect nml ABX Reporting Has patient been on IV antibiotics over the past 48 hours?: Yes Impression/Plan - Problem List Problem List: Right pleural effusion with hypoxia - s/p right tube thoracostomy on 1Apr - tube functioning/tidaling/no air leak/in adequate position - continue to waterseal - daily AM CXR Dinorah Lopez DO, FACS General Surgery
[2024-01-05 10:03] LABS: ALBUMIN 3.4 g/dL (3.2-5.5); ALBUMIN/GLOBULIN RATIO 1.3 (1.0-2.2); BILIRUBIN,TOTAL 0.4 mg/dL (0.2-1.0); CALCIUM 9.5 mg/dL (8.5-10.3); CREATININE 0.7 mg/dL (0.6-1.3); POTASSIUM 3.9 mmol/L (3.5-4.5); TOTAL PROTEIN 6.1 g/dL (6.4-8.9)
[2024-01-05] MEDS: LIDOCAINE PATCH 5% TOP PRN (10:24)
--- NOTE | 2024-01-05 13:24 | PROVIDER PROGRESS NOTE ---
Assessment/Plan - Problem List (1) Pleural effusion Assessment/Plan: (1) Pleural effusion Assessment/Plan: --s/p chest tube insertion on 01/02. --Pleural fluid analysis is currently pending. LDH elevated to suggest and exudative effusion. Unfortunately, cell count was not performed. Culture is pending. Cytology is pending. --Chest tube is set to gravity drainage. Case was discussed with general surgery who is managing her chest tube. --Exact etiology of pleural effusion is unknown. Have started her on azithromycin and Zosyn for broad spectrum antibiotic coverage until cultures return. --Daily CXR to assess lung expansion. (2) COPD (chronic obstructive pulmonary disease) Qualifiers: COPD type: unspecified COPD Qualified Code(s): J44.9 - Chronic obstructive pulmonary disease, unspecified Assessment/Plan: --Continue home inhalers. (3) Hypoxia Assessment/Plan: --Secondary to her COPD and pleural effusion. (4) Iron (Fe) deficiency anemia Assessment/Plan: --Started on oral Fe. (5) Hypothyroid Assessment/Plan: --Continue levothyroxine. (6) Hyperlipidemia Assessment/Plan: --Continue atorvastatin. Dispo: Continues to have drainage and lung expansion. Weaning oxygen. Requires greater than 96 hours inpatient. (2) COPD (chronic obstructive pulmonary disease) Qualifiers: COPD type: unspecified COPD Qualified Code(s): J44.9 - Chronic obstructive pulmonary disease, unspecified - Current Meds Current Meds: Current Medications Generic Name Dose Route Start Last Admin Trade Name Freq PRN Reason Stop Dose Admin Acetaminophen 650 mg 01/02/24 19:41 01/04/24 10:42 Acetaminophen 325 Mg Tablet PO 650 mg Q4HR PRN Administration Pain 1 to 4, or Fever Albuterol/Ipratropium 3 ml 01/02/24 19:55 01/03/24 06:53 Ipratropium/Albuterol 3 Ml Neb INH 3 ml Q4HR PRN Administration Wheezing Atorvastatin Calcium 20 mg 01/04/24 21:00 01/04/24 20:23 Atorvastatin 10 Mg Tablet PO 20 mg QPM LATONYA Administration Budesonide 0.5 mg 01/03/24 07:00 01/05/24 06:01 Budesonide 0.5 Mg/2 Ml Neb INH 0.5 mg RTBID LATONYA Administration Cyclobenzaprine HCl 5 mg 01/03/24 22:10 01/04/24 22:09 Cyclobenzaprine 10 Mg Tablet PO 5 mg TID PRN Administration Spasms Docusate Sodium 250 - 500 mg 01/04/24 11:00 01/05/24 08:26 Docusate Sodium 250 Mg Capsule PO 250 mg DAILY LATONYA Administration Ferrous Gluconate 324 mg 01/05/24 08:00 01/05/24 08:25 Ferrous Gluconate 324 Mg Tablet PO 324 mg DAILYWM LATONYA Administration Formoterol Fumarate 20 mcg 01/04/24 07:00 01/05/24 06:01 Formoterol Fumarate Neb 20 Mcg/2 Ml INH 20 mcg RTBID LATONYA Administration Gabapentin 300 mg 01/04/24 09:00 01/05/24 08:28 Gabapentin 300 Mg Capsule PO 300 mg DAILY LATONYA Administration Gabapentin 600 mg 01/03/24 23:00 01/04/24 20:23 Gabapentin 300 Mg Capsule PO 600 mg HS LATONYA Administration Hydromorphone HCl 0.5 mg 01/02/24 19:41 01/05/24 12:38 Hydromorphone 0.5 Mg/0.5 Ml Syringe IVP 0.5 mg Q4H PRN Administration Pain 8 to 10 Azithromycin 500 mg/ Sodium 250 mls @ 250 mls/hr 01/04/24 09:00 01/05/24 12:16 Chloride IV Infused DAILY LATONYA Infusion Piperacillin Sod/Tazobactam 100 mls @ 200 mls/hr 01/04/24 08:00 01/05/24 12:16 Sod 3.375 gm/ Sodium Chloride IV Infused Q6H LATONYA Infusion Levothyroxine Sodium 50 mcg 01/04/24 07:00 01/05/24 06:16 Levothyroxine 25 Mcg Tablet PO 50 mcg QDAC LATONYA Administration Lidocaine 1 patch 01/03/24 22:10 01/05/24 10:23 Lidocaine Patch 5% TOP 1 patch DAILY PRN Administration PAIN 1-4 Lidocaine 1 patch 01/05/24 10:15 01/05/24 10:24 Lidocaine Patch 5% TOP 1 patch DAILY PRN Administration Moderate Pain (Level 4-6) Montelukast Sodium 10 mg 01/04/24 21:00 01/04/24 20:23 Montelukast 10 Mg Tablet PO 10 mg QPM LATONYA Administration Multivitamins/Minerals 1 tab 01/03/24 08:00 01/05/24 08:26 Multivitamin W/Minerals Tablet PO 1 tab DAILYWM LATONYA Administration Nicotine 1 patch 01/04/24 09:00 01/05/24 08:25 Nicotine 14 Mg Patch TOP 1 patch DAILY LATONYA Administration Oxycodone HCl 5 mg 01/02/24 19:44 01/05/24 05:33 Oxycodone 5 Mg Tablet PO 5 mg Q6H PRN Administration PAIN 5-7 Polyethylene Glycol 17 gm 01/04/24 11:00 01/05/24 08:25 Polyethylene Glycol 3350 17 Gm Packet PO 17 gm DAILY LATONYA Administration Potassium Chloride 40 meq 01/04/24 10:00 01/05/24 08:25 Potassium Chloride 20 Meq Tablet PO 01/07/24 09:59 40 meq BID LATONYA Administration Senna 8.6 - 17.2 mg 01/04/24 11:00 01/05/24 08:26 Senna 8.6 Mg Tablet PO 8.6 mg DAILY LATONYA Administration Sodium Chloride 10 ml 01/02/24 19:41 01/04/24 20:16 Sodium Chloride Flush 0.9% 10 Ml Syringe IVP 10 ml PRN PRN Administration NEEDED PER PROVIDER ORDERS Sodium Chloride 10 ml 01/03/24 01:00 01/05/24 10:05 Sodium Chloride Flush 0.9% 10 Ml Syringe IVP 10 ml 0100,0900,1700 LATONYA Administration - Lab Result Fish Bone Diagrams: 01/05/24 09:25 01/05/24 09:25 - Additional Planning My Orders: My Active Orders 01/05/24 PROTEIN BODY FLUID [REFLAB] Routine Evaluate and Treat OT [OT] Routine Evaluate and Treat PT [PT] Routine 01/05/24 08:00 Ferrous Gluconate [Fergon] 324 mg PO DAILYWM 01/05/24 09:20 CELL COUNT, BF [BF] Routine CUL,BODY FLUID(AEROBIC) [RM] Routine 01/05/24 10:15 Lidocaine Patch 5% [Lidoderm Patch] 1 patch TOP DAILY PRN 01/06/24 05:00 BMP - BASIC METABOLIC PANEL [CHEM] DAILYLAB CBC [CBC - COMP BLD CT W/AUTO DIFF] [HEME] DAILYLAB 01/06/24 09:00 Chest 1V [XR] DAILY 01/07/24 05:00 BMP - BASIC METABOLIC PANEL [CHEM] DAILYLAB CBC [CBC - COMP BLD CT W/AUTO DIFF] [HEME] DAILYLAB 01/07/24 09:00 Chest 1V [XR] DAILY 01/08/24 05:00 BMP - BASIC METABOLIC PANEL [CHEM] DAILYLAB CBC [CBC - COMP BLD CT W/AUTO DIFF] [HEME] DAILYLAB Subjective - Subjective Patient Reports: Feeling Better, Resting Comfortably Objective Vital Signs: Vital Signs - 24 hr 01/04/24 01/04/24 01/04/24 16:00 19:03 23:52 Temperature 36.6 C 36.2 C L Heart Rate 68 Heart Rate [ 96 100 Brachial] Respiratory 16 16 18 Rate Blood Pressure 105/74 120/84 H [Left Brachial artery] O2 Saturation 95 93 If not protocol 1 2 : Oxygen Flow, liters/minute 01/05/24 01/05/24 06:04 07:55 Temperature 36.0 C L Heart Rate 89 Heart Rate [ 94 Brachial] Respiratory 17 16 Rate Blood Pressure 135/89 H [Left Brachial artery] O2 Saturation 94 If not protocol 2 2 : Oxygen Flow, liters/minute Oxygen O2 Source Nasal cannula Oxygen Flow Rate 2 I&O (Last 24 Hrs): Intake and Output Totals x24h 01/03/24 01/04/24 01/05/24 23:59 23:59 23:59 Intake Total 468 2020 930 Output Total 455 800 300 Balance 13 1220 630 General: Alert, Oriented x3, Cooperative, No acute distress Cardiovascular: Regular rate, Normal S1, Normal S2, No murmurs Respiratory: Chest non-tender, No respiratory distress, Breath sounds nml Abdomen: Normal bowel sounds, Soft, No tenderness, No hepatospenomegaly, No masses - Results Results: Laboratory Results WBC 12.7 x10^3/uL (4.8-10.8) H 01/05/24 09:25 RBC 3.78 10^6/uL (4.20-5.40) L 01/05/24 09:25 Hgb 10.7 g/dL (12.0-16.0) L 01/05/24 09:25 Hct 34.3 % (37.0-47.0) L 01/05/24 09:25 MCV 90.7 fL (81.0-99.0) 01/05/24 09:25 MCH 28.3 pg (27.0-31.0) 01/05/24 09:25 MCHC 31.2 g/dL (32.0-36.0) L 01/05/24 09:25 RDW 13.2 % (12.0-15.0) 01/05/24 09:25 Plt Count 503 10^3/uL (130-450) H 01/05/24 09:25 MPV 9.5 fL (7.9-10.8) 01/05/24 09:25 Neut # (Auto) 10.4 10^3/uL (1.5-6.6) H 01/05/24 09:25 Lymph # (Auto) 1.3 10^3/uL (1.5-3.5) L 01/05/24 09:25 [place] # (Auto) 0.8 10^3/uL (0.0-1.0) 01/05/24 09:25 Eos # (Auto) 0.0 10^3/uL (0.0-0.7) 01/05/24 09:25 Baso # (Auto) 0.1 10^3/uL (0.0-0.1) 01/05/24 09:25 Absolute Nucleated RBC 0.00 x10^3/uL 01/05/24 09: Nucleated RBC % 0.0 /100WBC 01/05/24 09:25 PT 14.1 secs (9.9-12.6) H 01/02/24 20:02 INR 1.3 (0.8-1.2) H 01/02/24 20:02 APTT 39.6 secs (24.9-33.3) H 01/02/24 20:02 Sodium 129 mmol/L (135-145) L 01/05/24 09:25 Potassium 3.9 mmol/L (3.5-4.5) 01/05/24 09:25 Chloride 93 mmol/L (101-111) L 01/05/24 09:25 Carbon Dioxide 29 mmol/L (21-32) 01/05/24 09:25 Anion Gap 7.0 (6-13) 01/05/24 09:25 BUN 14 mg/dL (6-20) 01/05/24 09:25 Creatinine 0.7 mg/dL (0.6-1.3) 01/05/24 09:25 Estimated GFR (MDRD) 84 (>89) L 01/05/24 09:25 Glucose 152 mg/dL (74-104) H 01/05/24 09:25 Calcium 9.5 mg/dL (8.5-10.3) 01/05/24 09:25 Iron 20 ug/dL (50-212) L 01/04/24 04:51 TIBC 280 ug/dL (250-450) 01/04/24 04:51 % Saturation 7 % (20-50) L 01/04/24 04:51 Transferrin 200 mg/dL (203-362) L 01/04/24 04:51 Total Bilirubin 0.4 mg/dL (0.2-1.0) 01/05/24 09:25 AST 23 IU/L (10-42) 01/05/24 09:25 ALT 24 IU/L (10-60) 01/05/24 09:25 Alkaline Phosphatase 85 IU/L (42-121) 01/05/24 09:25 Troponin I High Sens 12.8 ng/L (2.3-14.8) 01/02/24 16:41 B-Natriuretic Peptide 125 pg/mL (5-100) H 01/02/24 16:41 Total Protein 6.1 g/dL (6.4-8.9) L 01/05/24 09:25 Albumin 3.4 g/dL (3.2-5.5) 01/05/24 09:25 Globulin 2.7 g/dL (2.1-4.2) 01/05/24 09:25 Albumin/Globulin Ratio 1.3 (1.0-2.2) 01/05/24 09:25 Vitamin B12 2493 pg/mL (180-914) H 01/03/24 04:49 Folate 29.1 ng/mL (5.90 - >24.8) 01/03/24 04:49 Procalcitonin Immunoas 0.10 ng/mL (<0.5) 01/04/24 08:57 Fluid pH 7.4 (Not Estab.) 01/03/24 10:10 Fluid Glucose <2 mg/dL (.) 01/03/24 10:10 Fluid LDH 1845 IU/L (.) 01/03/24 10:10 Nasal Adenovirus (PCR) NOT DETECTED 01/02/24 16:53 Nasal B. parapertussis DNA (PCR) NOT DETECTED 01/02/24 16:53 Nasal Coronavir 229E PCR NOT DETECTED 01/02/24 16:53 Nasal Coronavir HKU1 PCR NOT DETECTED 01/02/24 16:53 Nasal Coronavir NL63 PCR NOT DETECTED 01/02/24 16:53 Nasal Coronavir OC43 PCR NOT DETECTED 01/02/24 16:53 Nasal Enterovir/Rhinovir PCR NOT DETECTED 01/02/24 16:53 Nasal Influenza B PCR NOT DETECTED 01/02/24 16:53 Nasal Influenza A PCR NOT DETECTED 01/02/24 16:53 Nasal Parainfluen 1 PCR NOT DETECTED 01/02/24 16:53 Nasal Parainfluen 2 PCR NOT DETECTED 01/02/24 16:53 Nasal Parainfluen 3 PCR NOT DETECTED 01/02/24 16:53 Nasal Parainfluen 4 PCR NOT DETECTED 01/02/24 16:53 Nasal RSV (PCR) NOT DETECTED 01/02/24 16:53 Nasal B.pertussis DNA PCR NOT DETECTED 01/02/24 16:53 Nasal C.pneumoniae (PCR) NOT DETECTED 01/02/24 16:53 Eusebio Human Metapneumo PCR NOT DETECTED 01/02/24 16:53 Nasal M.pneumoniae (PCR) NOT DETECTED 01/02/24 16:53 Nasal SARS-CoV-2 (PCR) NOT DETECTED 01/02/24 16:53 - Procedures Procedures: Procedures EXC LES SOFT TISSUE NEC (08/21/13)
[2024-01-05 14:55] LABS: CC,BF RBC 201000 /mm^3; CC,BF WBC 1739 /mm^3; LYMPHOCYTES %,BODY FLUID 90 %; MACROPHAGES %,BODY FLUID 1 %; MONOCYTES %,BODY FLUID 1 %; NEUTROPHILS %, BF 8 %
[2024-01-05 14:56] LABS: BF CLARITY CLOUDY; BF COLOR BLOODY; BF SOURCE PLEURAL
[2024-01-05] MEDS ORDERED: METOCLOPRAMIDE 10 MG/2 ML VIAL IVP PRN (15:04)
--- NOTE | 2024-01-05 20:01 | XRAY Report ---
PROCEDURE: Chest 1V INDICATIONS: Interval change in pleural effusion TECHNIQUE: One view of the chest was acquired. COMPARISON: CXR 01/04/2024, CT chest 01/02/2024. FINDINGS: Surgical changes and devices: None. Lungs and pleura: Partial opacification of the right hemithorax, not significantly changed. Large ri ght pleural effusion. No significant left pleural effusion. Streaky opacity in the left lower lobe. N o pneumothorax identified. Mediastinum: Mediastinal contours appear similar. Heart size is grossly unchanged. Partially obscur ed. Bones and chest wall: No suspicious bony lesions. Overlying soft tissues appear unremarkable. IMPRESSION: Similar large right pleural effusion. Reviewed by: Allen Roe MD on 01/05/2024 8:00 PM PDT Approved by: Allen Roe MD on 01/05/2024 8:00 PM PDT Station ID: [id number]
[2024-01-06 06:06] LABS: BASOPHILS # (AUTO) 0.1 10^3/uL (0.0-0.1); BASOPHILS % (AUTO) 0.5 %; EOSINOPHILS # (AUTO) 0.1 10^3/uL (0.0-0.7); EOSINOPHILS % (AUTO) 1.2 %; HCT - HEMATOCRIT 32.6 % (37.0-47.0); HGB - HEMOGLOBIN 10.5 g/dL (12.0-16.0); LYMPHOCYTES # (AUTO) 1.1 10^3/uL (1.5-3.5); LYMPHOCYTES % (AUTO) 10.7 %; MEAN CORPUSCULAR HEMOGLOBIN 29.1 pg (27.0-31.0); MEAN CORPUSCULAR HGB CONC 32.2 g/dL (32.0-36.0); MEAN CORPUSCULAR VOLUME 90.3 fL (81.0-99.0); MEAN PLATELET VOLUME 9.6 fL (7.9-10.8); MONOCYTES # (AUTO) 0.9 10^3/uL (0.0-1.0); MONOCYTES % (AUTO) 8.5 %; NEUTROPHILS # (AUTO) 8.1 10^3/uL (1.5-6.6); NEUTROPHILS % (AUTO) 78.1 %; PLT - PLATELET COUNT 492 10^3/uL (130-450); RED BLOOD COUNT 3.61 10^6/uL (4.20-5.40); RED CELL DISTRIBUTION WIDTH 13.2 % (12.0-15.0); WHITE BLOOD COUNT 10.4 x10^3/uL (4.8-10.8)
[2024-01-06 06:23] LABS: CALCIUM 9.4 mg/dL (8.5-10.3); CREATININE 0.6 mg/dL (0.6-1.3); POTASSIUM 4.6 mmol/L (3.5-4.5)
--- NOTE | 2024-01-06 08:57 | PROVIDER PROGRESS NOTE ---
Subjective - General Admit Date: 01/02/24 Procedure Date: 01/03/24 Post Op Days: 3 Procedure Performed: Right tube thoracostomy placement (chest tube placement) - Review of Systems Wound/Incisions: positive: Dressing dry and intact Drain Type: 32F Chest tube placed into the right pleural space Drain Output Description: serosanguinous fluid, tidaling, no air leak, waterseal Approximate mls Output: 375cc Pulmonary: positive: Other (Improved SOB, down to 2L NC from 6L) Gastrointestinal: positive: No symptoms All Other Systems: positive: Reviewed and negative - Other Other Information/Narrative: 375cc serosanguinous chest tube output over last 24hrs (for 1975 total since placement). Stable on 2L O2. Objective - Patient Data Reviewed Vital Signs: Yes Vital Signs: Vital Signs x48h Temp Pulse Resp BP Pulse Ox O2 Flow Rate 01/06/24 07:50 36.7 C 96 18 119/79 95 2 Intake & Output: Intake and Output Totals x24h 01/04/24 01/05/24 01/06/24 23:59 23:59 23:59 Intake Total 2020 1580 500 Output Total 800 400 225 Balance 1220 1180 275 - Lab Results Lab Results: 01/06/24 05:31 01/06/24 05:31 Other Lab Results: Lab Results x24hrs 01/06/24 01/06/24 01/05/24 Range/Units 05:31 05:31 14:00 WBC 10.4 (4.8-10.8) x10^3/uL RBC 3.61 L (4.20-5.40) 10^6/uL Hgb 10.5 L (12.0-16.0) g/dL Hct 32.6 L (37.0-47.0) % MCV 90.3 (81.0-99.0) fL MCH 29.1 (27.0-31.0) pg MCHC 32.2 (32.0-36.0) g/dL RDW 13.2 (12.0-15.0) % Plt Count 492 H (130-450) 10^3/uL MPV 9.6 (7.9-10.8) fL Neut # (Auto) 8.1 H (1.5-6.6) 10^3/uL Lymph # (Auto) 1.1 L (1.5-3.5) 10^3/uL [place] # (Auto) 0.9 (0.0-1.0) 10^3/uL Eos # (Auto) 0.1 (0.0-0.7) 10^3/uL Baso # (Auto) 0.1 (0.0-0.1) 10^3/uL Absolute Nucleated RBC 0.00 x10^3/uL Nucleated RBC % 0.0 /100WBC Sodium 132 L (135-145) mmol/L Potassium 4.6 H (3.5-4.5) mmol/L Chloride 99 L (101-111) mmol/L Carbon Dioxide 26 (21-32) mmol/L Anion Gap 7.0 (6-13) BUN 9 (6-20) mg/dL Creatinine 0.6 (0.6-1.3) mg/dL Estimated GFR (MDRD) 100 (>89) Glucose 104 (74-104) mg/dL Calcium 9.4 (8.5-10.3) mg/dL Total Bilirubin (0.2-1.0) mg/dL AST (10-42) IU/L ALT (10-60) IU/L Alkaline Phosphatase (42-121) IU/L Total Protein (6.4-8.9) g/dL Albumin (3.2-5.5) g/dL Globulin (2.1-4.2) g/dL Albumin/Globulin Ratio (1.0-2.2) Fluid Source PLEURAL Fluid Color BLOODY Fluid Clarity CLOUDY Fluid WBC 1739 /mm^3 Fluid RBC 805433 /mm^3 Fluid Neutrophils % 8 % Fluid Lymphocytes % 90 % Fluid Monocytes % 1 % Fluid Macrophages % 1 % Fld Mesothelial Cell % Not Reportable 01/05/24 01/05/24 Range/Units 09:25 09:25 WBC 12.7 H (4.8-10.8) x10^3/uL RBC 3.78 L (4.20-5.40) 10^6/uL Hgb 10.7 L (12.0-16.0) g/dL Hct 34.3 L (37.0-47.0) % MCV 90.7 (81.0-99.0) fL MCH 28.3 (27.0-31.0) pg MCHC 31.2 L (32.0-36.0) g/dL RDW 13.2 (12.0-15.0) % Plt Count 503 H (130-450) 10^3/uL MPV 9.5 (7.9-10.8) fL Neut # (Auto) 10.4 H (1.5-6.6) 10^3/uL Lymph # (Auto) 1.3 L (1.5-3.5) 10^3/uL [place] # (Auto) 0.8 (0.0-1.0) 10^3/uL Eos # (Auto) 0.0 (0.0-0.7) 10^3/uL Baso # (Auto) 0.1 (0.0-0.1) 10^3/uL Absolute Nucleated RBC 0.00 x10^3/uL Nucleated RBC % 0.0 /100WBC Sodium 129 L (135-145) mmol/L Potassium 3.9 (3.5-4.5) mmol/L Chloride 93 L (101-111) mmol/L Carbon Dioxide 29 (21-32) mmol/L Anion Gap 7.0 (6-13) BUN 14 (6-20) mg/dL Creatinine 0.7 (0.6-1.3) mg/dL Estimated GFR (MDRD) 84 L (>89) Glucose 152 H (74-104) mg/dL Calcium 9.5 (8.5-10.3) mg/dL Total Bilirubin 0.4 (0.2-1.0) mg/dL AST 23 (10-42) IU/L ALT 24 (10-60) IU/L Alkaline Phosphatase 85 (42-121) IU/L Total Protein 6.1 L (6.4-8.9) g/dL Albumin 3.4 (3.2-5.5) g/dL Globulin 2.7 (2.1-4.2) g/dL Albumin/Globulin Ratio 1.3 (1.0-2.2) Fluid Source Fluid Color Fluid Clarity Fluid WBC /mm^3 Fluid RBC /mm^3 Fluid Neutrophils % % Fluid Lymphocytes % % Fluid Monocytes % % Fluid Macrophages % % Fld Mesothelial Cell % - Imaging Results Radiology Imaging: positive: EMP read indepedently (AM CXR relatively unchanged from yesterday, possibly slight progressive re-expansion of RUL but marginal change in size of effusion) - Current Medications Current Medications: Current Medications Generic Name Dose Route Start Last Admin Trade Name Freq PRN Reason Stop Dose Admin Acetaminophen 650 mg 01/02/24 19:41 01/06/24 07:33 Acetaminophen 325 Mg Tablet PO 650 mg Q4HR PRN Administration Pain 1 to 4, or Fever Albuterol/Ipratropium 3 ml 01/02/24 19:55 01/05/24 19:11 Ipratropium/Albuterol 3 Ml Neb INH 3 ml Q4HR PRN Administration Wheezing Atorvastatin Calcium 20 mg 01/04/24 21:00 01/05/24 20:12 Atorvastatin 10 Mg Tablet PO 20 mg QPM LATONYA Administration Budesonide 0.5 mg 01/03/24 07:00 01/05/24 19:11 Budesonide 0.5 Mg/2 Ml Neb INH 0.5 mg RTBID LATONYA Administration Cyclobenzaprine HCl 5 mg 01/03/24 22:10 01/04/24 22:09 Cyclobenzaprine 10 Mg Tablet PO 5 mg TID PRN Administration Spasms Docusate Sodium 250 - 500 mg 01/04/24 11:00 01/06/24 08:04 Docusate Sodium 250 Mg Capsule PO 500 mg DAILY LATONYA Administration Ferrous Gluconate 324 mg 01/05/24 08:00 01/06/24 08:03 Ferrous Gluconate 324 Mg Tablet PO 324 mg DAILYWM LATONYA Administration Formoterol Fumarate 20 mcg 01/04/24 07:00 01/05/24 19:11 Formoterol Fumarate Neb 20 Mcg/2 Ml INH 20 mcg RTBID LATONYA Administration Gabapentin 300 mg 01/04/24 09:00 01/06/24 08:04 Gabapentin 300 Mg Capsule PO 300 mg DAILY LATONYA Administration Gabapentin 600 mg 01/03/24 23:00 01/05/24 20:13 Gabapentin 300 Mg Capsule PO 600 mg HS LATONYA Administration Hydromorphone HCl 0.5 mg 01/02/24 19:41 01/06/24 04:38 Hydromorphone 0.5 Mg/0.5 Ml Syringe IVP 0.5 mg Q4H PRN Administration Pain 8 to 10 Azithromycin 500 mg/ Sodium 250 mls @ 250 mls/hr 01/04/24 09:00 01/05/24 12:16 Chloride IV Infused DAILY LATONYA Infusion Piperacillin Sod/Tazobactam 100 mls @ 200 mls/hr 01/04/24 08:00 01/06/24 08:02 Sod 3.375 gm/ Sodium Chloride IV 200 mls/hr Q6H LATONYA Administration Levothyroxine Sodium 50 mcg 01/04/24 07:00 01/06/24 06:24 Levothyroxine 25 Mcg Tablet PO 50 mcg QDAC LATONYA Administration Lidocaine 1 patch 01/03/24 22:10 01/05/24 10:23 Lidocaine Patch 5% TOP 1 patch DAILY PRN Administration PAIN 1-4 Lidocaine 1 patch 01/05/24 10:15 01/05/24 10:24 Lidocaine Patch 5% TOP 1 patch DAILY PRN Administration Moderate Pain (Level 4-6) Montelukast Sodium 10 mg 01/04/24 21:00 01/05/24 20:12 Montelukast 10 Mg Tablet PO 10 mg QPM LATONYA Administration Multivitamins/Minerals 1 tab 01/03/24 08:00 01/06/24 08:04 Multivitamin W/Minerals Tablet PO 1 tab DAILYWM LATONYA Administration Nicotine 1 patch 01/04/24 09:00 01/06/24 08:02 Nicotine 14 Mg Patch TOP 1 patch DAILY LATONYA Administration Oxycodone HCl 5 mg 01/02/24 19:44 01/06/24 07:33 Oxycodone 5 Mg Tablet PO 5 mg Q6H PRN Administration PAIN 5-7 Polyethylene Glycol 17 gm 01/04/24 11:00 01/06/24 08:03 Polyethylene Glycol 3350 17 Gm Packet PO 17 gm DAILY LATONYA Administration Potassium Chloride 40 meq 01/04/24 10:00 01/06/24 08:03 Potassium Chloride 20 Meq Tablet PO 01/07/24 09:59 40 meq BID LATONYA Administration Senna 8.6 - 17.2 mg 01/04/24 11:00 01/06/24 08:03 Senna 8.6 Mg Tablet PO 17.2 mg DAILY LATONYA Administration Sodium Chloride 10 ml 01/02/24 19:41 01/04/24 20:16 Sodium Chloride Flush 0.9% 10 Ml Syringe IVP 10 ml PRN PRN Administration NEEDED PER PROVIDER ORDERS Sodium Chloride 10 ml 01/03/24 01:00 01/06/24 08:04 Sodium Chloride Flush 0.9% 10 Ml Syringe IVP 10 ml 0100,0900,1700 [facility] Administration - Physical Exam General Appearance: positive: No acute distress, Alert Respiratory: negative: Chest non-tender (moderately tender around chest tube site. Tube is tidaling without air leak, serosanguinas fluid in tubing and pleurevac.) Cardiovascular: positive: Regular rate & rhythm Abdomen: positive: Non-tender, No organomegaly, Nml bowel sounds, No distention Impression/Plan - Problem List Problem List: Right pleural effusion and hypoxia - stable on 2L O2 without significant interval change from yesterday in appearance of effusion/lung expansion on AM CXR. Concerned that patient may need decortication with thoracic surgeon, thus recommend initiating transfer effort. Dinorah Lopez DO, FACS General Surgeon
--- NOTE | 2024-01-06 09:53 | XRAY Report ---
PROCEDURE: Chest 1V INDICATIONS: Interval change in pleural effusion TECHNIQUE: One view of the chest was acquired. COMPARISON: 01/05/2024 FINDINGS: Surgical changes and devices: Large bore right-sided chest tube. The tube appears to have been retra cted, though this may be accentuated by change in patient position (new kyphosis). The proximal sideh ole is still outside the thorax. Lungs and pleura: Opacification of much of the lateral and lower right hemithorax with slightly decr eased aeration in the right midlung compared to prior. Left lung volume has decreased, again may be d ue to projection. Diffuse thickening of the interstitial markings is present. Mediastinum: Cardiomediastinal contour is largely obscured. No visible change. Bones and chest wall: No suspicious bony lesions. Overlying soft tissues appear unremarkable. IMPRESSION: Change in patient position which likely accentuates the size of right effusion and position of right chest tube. There may be slight decreased aeration in the right lung. Apparent left hemithorax volume loss and persistent diffuse interstitial thickening. Reviewed by: Yue Brown MD on 01/06/2024 9:51 AM PDT Approved by: Yue Brown MD on 01/06/2024 9:51 AM PDT Station ID: [id number]
--- NOTE | 2024-01-06 12:41 | PROVIDER PROGRESS NOTE ---
Assessment/Plan - Problem List (1) Pleural effusion Assessment/Plan: (1) Pleural effusion Assessment/Plan: --s/p chest tube insertion on 01/02. --Pleural fluid analysis is currently pending. LDH elevated to suggest and exudative effusion. Cell count showing elevated RBCs suggestive. Culture is pending. Cytology is pending. --Chest tube is set to gravity drainage. Case was discussed with general surgery who is managing her chest tube. --Exact etiology of pleural effusion is unknown. Have started her on azithromycin and Zosyn for broad spectrum antibiotic coverage until cultures return. --Daily CXR to assess lung expansion. --Making arrangements to transfer for higher level of care. (2) COPD (chronic obstructive pulmonary disease) Qualifiers: COPD type: unspecified COPD Qualified Code(s): J44.9 - Chronic obstructive pulmonary disease, unspecified Assessment/Plan: --Continue home inhalers. (3) Hypoxia Assessment/Plan: --Secondary to her COPD and pleural effusion. (4) Iron (Fe) deficiency anemia Assessment/Plan: --Started on oral Fe. (5) Hypothyroid Assessment/Plan: --Continue levothyroxine. (6) Hyperlipidemia Assessment/Plan: --Continue atorvastatin. Dispo: Continues to have drainage and lung expansion. Weaning oxygen. Requires greater than 96 hours inpatient. Will attempt to transfer today. (2) COPD (chronic obstructive pulmonary disease) Qualifiers: COPD type: unspecified COPD Qualified Code(s): J44.9 - Chronic obstructive pulmonary disease, unspecified - Current Meds Current Meds: Current Medications Generic Name Dose Route Start Last Admin Trade Name Freq PRN Reason Stop Dose Admin Acetaminophen 650 mg 01/02/24 19:41 01/06/24 07:33 Acetaminophen 325 Mg Tablet PO 650 mg Q4HR PRN Administration Pain 1 to 4, or Fever Albuterol/Ipratropium 3 ml 01/02/24 19:55 01/05/24 19:11 Ipratropium/Albuterol 3 Ml Neb INH 3 ml Q4HR PRN Administration Wheezing Atorvastatin Calcium 20 mg 01/04/24 21:00 01/05/24 20:12 Atorvastatin 10 Mg Tablet PO 20 mg QPM LATONYA Administration Budesonide 0.5 mg 01/03/24 07:00 01/06/24 11:40 Budesonide 0.5 Mg/2 Ml Neb INH Not Given RTBID LATONYA Cyclobenzaprine HCl 5 mg 01/03/24 22:10 01/04/24 22:09 Cyclobenzaprine 10 Mg Tablet PO 5 mg TID PRN Administration Spasms Docusate Sodium 250 - 500 mg 01/04/24 11:00 01/06/24 08:04 Docusate Sodium 250 Mg Capsule PO 500 mg DAILY LATONYA Administration Ferrous Gluconate 324 mg 01/05/24 08:00 01/06/24 08:03 Ferrous Gluconate 324 Mg Tablet PO 324 mg DAILYWM LATONYA Administration Formoterol Fumarate 20 mcg 01/04/24 07:00 01/06/24 11:40 Formoterol Fumarate Neb 20 Mcg/2 Ml INH Not Given RTBID LATONYA Gabapentin 300 mg 01/04/24 09:00 01/06/24 08:04 Gabapentin 300 Mg Capsule PO 300 mg DAILY LATONYA Administration Gabapentin 600 mg 01/03/24 23:00 01/05/24 20:13 Gabapentin 300 Mg Capsule PO 600 mg HS LATONYA Administration Hydromorphone HCl 0.5 mg 01/02/24 19:41 01/06/24 04:38 Hydromorphone 0.5 Mg/0.5 Ml Syringe IVP 0.5 mg Q4H PRN Administration Pain 8 to 10 Azithromycin 500 mg/ Sodium 250 mls @ 250 mls/hr 01/04/24 09:00 01/06/24 12:38 Chloride IV Infused DAILY LATONYA Infusion Piperacillin Sod/Tazobactam 100 mls @ 200 mls/hr 01/04/24 08:00 01/06/24 09:12 Sod 3.375 gm/ Sodium Chloride IV Infused Q6H LATONYA Infusion Levothyroxine Sodium 50 mcg 01/04/24 07:00 01/06/24 06:24 Levothyroxine 25 Mcg Tablet PO 50 mcg QDAC LATONYA Administration Lidocaine 1 patch 01/03/24 22:10 01/05/24 10:23 Lidocaine Patch 5% TOP 1 patch DAILY PRN Administration PAIN 1-4 Lidocaine 1 patch 01/05/24 10:15 01/05/24 10:24 Lidocaine Patch 5% TOP 1 patch DAILY PRN Administration Moderate Pain (Level 4-6) Montelukast Sodium 10 mg 01/04/24 21:00 01/05/24 20:12 Montelukast 10 Mg Tablet PO 10 mg QPM LATONYA Administration Multivitamins/Minerals 1 tab 01/03/24 08:00 01/06/24 08:04 Multivitamin W/Minerals Tablet PO 1 tab DAILYWM LATONYA Administration Nicotine 1 patch 01/04/24 09:00 01/06/24 08:02 Nicotine 14 Mg Patch TOP 1 patch DAILY LATONYA Administration Oxycodone HCl 5 mg 01/02/24 19:44 01/06/24 07:33 Oxycodone 5 Mg Tablet PO 5 mg Q6H PRN Administration PAIN 5-7 Polyethylene Glycol 17 gm 01/04/24 11:00 01/06/24 08:03 Polyethylene Glycol 3350 17 Gm Packet PO 17 gm DAILY LATONYA Administration Potassium Chloride 40 meq 01/04/24 10:00 01/06/24 08:03 Potassium Chloride 20 Meq Tablet PO 01/07/24 09:59 40 meq BID LATONYA Administration Senna 8.6 - 17.2 mg 01/04/24 11:00 01/06/24 08:03 Senna 8.6 Mg Tablet PO 17.2 mg DAILY LATONYA Administration Sodium Chloride 10 ml 01/02/24 19:41 01/04/24 20:16 Sodium Chloride Flush 0.9% 10 Ml Syringe IVP 10 ml PRN PRN Administration NEEDED PER PROVIDER ORDERS Sodium Chloride 10 ml 01/03/24 01:00 01/06/24 08:04 Sodium Chloride Flush 0.9% 10 Ml Syringe IVP 10 ml 0100,0900,1700 LATONYA Administration - Lab Result Fish Bone Diagrams: 01/06/24 05:31 01/06/24 05:31 - Additional Planning My Orders: My Active Orders 01/05/24 15:04 Metoclopramide Inj [Reglan Inj] 5 mg IVP Q6HR PRN 01/07/24 05:00 BMP - BASIC METABOLIC PANEL [CHEM] DAILYLAB CBC [CBC - COMP BLD CT W/AUTO DIFF] [HEME] DAILYLAB 01/08/24 05:00 BMP - BASIC METABOLIC PANEL [CHEM] DAILYLAB CBC [CBC - COMP BLD CT W/AUTO DIFF] [HEME] DAILYLAB Subjective - Subjective Patient Reports: Feeling Better, Resting Comfortably, No Complaints Objective Vital Signs: Vital Signs - 24 hr 01/05/24 01/05/24 01/05/24 14:13 14:15 15:50 Temperature 36.6 C Heart Rate Heart Rate [ 101 H Brachial] Heart Rate [ 108 H 108 H Sitting] Heart Rate [ 110 H 110 H Standing] Respiratory 15 Rate Blood Pressure 116/78 [Left Brachial artery] Blood Pressure 138/100 H 138/100 H [Sitting] Blood Pressure 123/90 H 123/90 H [Standing] O2 Saturation 95 If not protocol 2 : Oxygen Flow, liters/minute 01/05/24 01/05/24 01/06/24 19:10 23:46 07:50 Temperature 36.7 C 36.7 C Heart Rate 102 H Heart Rate [ 100 96 Brachial] Heart Rate [ Sitting] Heart Rate [ Standing] Respiratory 20 16 18 Rate Blood Pressure 100/69 119/79 [Left Brachial artery] Blood Pressure [Sitting] Blood Pressure [Standing] O2 Saturation 94 95 If not protocol 2 2 2 : Oxygen Flow, liters/minute Oxygen O2 Source Nasal cannula Oxygen Flow Rate 2 I&O (Last 24 Hrs): Intake and Output Totals x24h 01/04/24 01/05/24 01/06/24 23:59 23:59 23:59 Intake Total 2020 1580 1330 Output Total 800 400 250 Balance 1220 1180 1080 General: Alert, Oriented x3, Cooperative, No acute distress Cardiovascular: Regular rate, Normal S1, Normal S2, No murmurs Respiratory: Chest non-tender, No respiratory distress, Breath sounds nml Abdomen: Normal bowel sounds, Soft, No tenderness, No hepatospenomegaly, No masses - Results Results: Laboratory Results WBC 10.4 x10^3/uL (4.8-10.8) 01/06/24 05:31 RBC 3.61 10^6/uL (4.20-5.40) L 01/06/24 05:31 Hgb 10.5 g/dL (12.0-16.0) L 01/06/24 05:31 Hct 32.6 % (37.0-47.0) L 01/06/24 05:31 MCV 90.3 fL (81.0-99.0) 01/06/24 05:31 MCH 29.1 pg (27.0-31.0) 01/06/24 05:31 MCHC 32.2 g/dL (32.0-36.0) 01/06/24 05:31 RDW 13.2 % (12.0-15.0) 01/06/24 05:31 Plt Count 492 10^3/uL (130-450) H 01/06/24 05:31 MPV 9.6 fL (7.9-10.8) 01/06/24 05:31 Neut # (Auto) 8.1 10^3/uL (1.5-6.6) H 01/06/24 05:31 Lymph # (Auto) 1.1 10^3/uL (1.5-3.5) L 01/06/24 05:31 Churchill # (Auto) 0.9 10^3/uL (0.0-1.0) 01/06/24 05:31 Eos # (Auto) 0.1 10^3/uL (0.0-0.7) 01/06/24 05:31 Baso # (Auto) 0.1 10^3/uL (0.0-0.1) 01/06/24 05:31 Absolute Nucleated RBC 0.00 x10^3/uL 01/06/24 05:31 Nucleated RBC % 0.0 /100WBC 01/06/24 05:31 PT 14.1 secs (9.9-12.6) H 01/02/24 20:02 INR 1.3 (0.8-1.2) H 01/02/24 20:02 APTT 39.6 secs (24.9-33.3) H 01/02/24 20:02 Sodium 132 mmol/L (135-145) L 01/06/24 05:31 Potassium 4.6 mmol/L (3.5-4.5) H 01/06/24 05:31 Chloride 99 mmol/L (101-111) L 01/06/24 05:31 Carbon Dioxide 26 mmol/L (21-32) 01/06/24 05:31 Anion Gap 7.0 (6-13) 01/06/24 05:31 BUN 9 mg/dL (6-20) 01/06/24 05:31 Creatinine 0.6 mg/dL (0.6-1.3) 01/06/24 05:31 Estimated GFR (MDRD) 100 (>89) 01/06/24 05:31 Glucose 104 mg/dL (74-104) 01/06/24 05:31 Calcium 9.4 mg/dL (8.5-10.3) 01/06/24 05:31 Iron 20 ug/dL (50-212) L 01/04/24 04:51 TIBC 280 ug/dL (250-450) 01/04/24 04:51 % Saturation 7 % (20-50) L 01/04/24 04:51 Transferrin 200 mg/dL (203-362) L 01/04/24 04:51 Total Bilirubin 0.4 mg/dL (0.2-1.0) 01/05/24 09:25 AST 23 IU/L (10-42) 01/05/24 09:25 ALT 24 IU/L (10-60) 01/05/24 09:25 Alkaline Phosphatase 85 IU/L (42-121) 01/05/24 09:25 Troponin I High Sens 12.8 ng/L (2.3-14.8) 01/02/24 16:41 B-Natriuretic Peptide 125 pg/mL (5-100) H 01/02/24 16:41 Total Protein 6.1 g/dL (6.4-8.9) L 01/05/24 09:25 Albumin 3.4 g/dL (3.2-5.5) 01/05/24 09:25 Globulin 2.7 g/dL (2.1-4.2) 01/05/24 09:25 Albumin/Globulin Ratio 1.3 (1.0-2.2) 01/05/24 09:25 Vitamin B12 2493 pg/mL (180-914) H 01/03/24 04:49 Folate 29.1 ng/mL (5.90 - >24.8) 01/03/24 04:49 Procalcitonin Immunoas 0.10 ng/mL (<0.5) 01/04/24 08:57 Fluid Source PLEURAL 01/05/24 14:00 Fluid Color BLOODY 01/05/24 14:00 Fluid Clarity CLOUDY 01/05/24 14:00 Fluid pH 7.4 (Not Estab.) 01/03/24 10:10 Fluid WBC 1739 /mm^3 01/05/24 14:00 Fluid RBC 617614 /mm^3 01/05/24 14:00 Fluid Neutrophils % 8 % 01/05/24 14:00 Fluid Lymphocytes % 90 % 01/05/24 14:00 Fluid Monocytes % 1 % 01/05/24 14:00 Fluid Macrophages % 1 % 01/05/24 14:00 Fld Mesothelial Cell % Not Reportable 01/05/24 14:00 Fluid Glucose <2 mg/dL (.) 01/03/24 10:10 Fluid LDH 1845 IU/L (.) 01/03/24 10:10 Nasal Adenovirus (PCR) NOT DETECTED 01/02/24 16:53 Nasal B. parapertussis DNA (PCR) NOT DETECTED 01/02/24 16:53 Nasal Coronavir 229E PCR NOT DETECTED 01/02/24 16:53 Nasal Coronavir HKU1 PCR NOT DETECTED 01/02/24 16:53 Nasal Coronavir NL63 PCR NOT DETECTED 01/02/24 16:53 Nasal Coronavir OC43 PCR NOT DETECTED 01/02/24 16:53 Nasal Enterovir/Rhinovir PCR NOT DETECTED 01/02/24 16:53 Nasal Influenza B PCR NOT DETECTED 01/02/24 16:53 Nasal Influenza A PCR NOT DETECTED 01/02/24 16:53 Nasal Parainfluen 1 PCR NOT DETECTED 01/02/24 16:53 Nasal Parainfluen 2 PCR NOT DETECTED 01/02/24 16:53 Nasal Parainfluen 3 PCR NOT DETECTED 01/02/24 16:53 Nasal Parainfluen 4 PCR NOT DETECTED 01/02/24 16:53 Nasal RSV (PCR) NOT DETECTED 01/02/24 16:53 Nasal B.pertussis DNA PCR NOT DETECTED 01/02/24 16:53 Nasal C.pneumoniae (PCR) NOT DETECTED 01/02/24 16:53 Eusebio Human Metapneumo PCR NOT DETECTED 01/02/24 16:53 Nasal M.pneumoniae (PCR) NOT DETECTED 01/02/24 16:53 Nasal SARS-CoV-2 (PCR) NOT DETECTED 01/02/24 16:53 - Procedures Procedures: Procedures EXC LES SOFT TISSUE NEC (08/21/13)
[2024-01-06 16:02] VITALS: BP 115/80; O2SAT 93
--- NOTE | 2024-01-06 19:06 | Discharge Plan ---
Discharge Plan Problem Reviewed?: Yes Disposition: 02 Transfer Acute Care Hosp Condition: Stable Diet: Regular No Smoking: If you smoke, Please STOP! Call for help.
--- NOTE | 2024-01-06 19:06 | DISCHARGE SUMMARY ---
"Discharge Summary Admit Date: 01/02/24 Discharge Date: 01/06/24 Discharging Provider: Avila Carlson Code Status: Attempt Resuscitation Condition at Discharge: Stable Discharge Disposition: 02 Transfer Acute Care Hosp Discharge Facility [facility]: [facility] - DIAGNOSES Discharge Diagnoses with Status of Each Condition: Right sided pleural effusion s/p chest tube placement --Cytology and culture pending. --Transferred to [facility] for further evaluation by cardiothoracic surgery. - HPI History of Present Illness: H&P was conducted via video remotely, using Access Cart. Patient is in [place]. Physician is in [place]. Pt's son Jose at bedside. 63 yo F with PMH of COPD, tob use, HTN, Fibromyalgia, DJD, Cervical Radiculopathy, Anxiety/Depression presented to the ER via EMS with c/o 1 week h/o increased Shortness of breath. Pt now thinks that she has had a gradual increase of Shortness of breath over 2 months, worse with activity. +increasing weakness, +increasing fatigue over 2 months, as well. No swelling in legs. Her PCP prescribed Albuterol MDI and Advair MDI. Pt has also had joint pains, mostly in her shoulders and neck increasing over 8 months, for which she has been taking Gabapentin, Oxycodone. She does not like taking Gabapentin and has been weaning herself off it. She rarely takes Oxycodone. Yesterday, she came to the ER for increased R shoulder pain, as well as N/V. She was given anti-emetics. Pt also notes that she has been constipated with occasional small, hard BMs x 2 weeks. No CP, cough, F/C. No abdo pain. Pt quit tobacco this week. EMS placed her on O2. In the ER, SpO2 85% RA, 92% 2L NC O2, Hgb 10, Na 132, K 3, BNP 125, Trop 12.8 EKG: NSR at 95, no STTw changes CXR: lg R pleural effusion CT Chest: Lg R pleural effusion with lung collapse, med LN Pt was given O2, Duonebs, Prednisone, Dilaudid in the ER. - CONSULTS | PROCEDURES Consultations: General surgery Procedures: Thoracentesis on 01/01. Chest tube placement on 01/02. - HOSPITAL COURSE Hospital Course: Patient is a 63-year-old female who presented to the ED due to complaints of increasing fatigue and shortness of breath over the past 2 months. A chest x- ray was performed which revealed a large right-sided pleural effusion. This was followed up with a CT scan which also showed evidence of lung collapse. Patient was admitted and started on 2 L of oxygen via nasal cannula. She underw ent a thoracentesis on 01/01 where a small amount of fluid was removed for analysis. At the time of this dictation, cytology and culture are pending. LDH was elevated at 1845. She did have 200,000 RBCs and 1739 WBCs in her pleural fluid. A chest tube was placed on 01/02 by general surgery. During the course of her hospitalization she had about 1800 mL out of her chest tube. Patient was hemodynamically stable however it was felt she needed a higher level of care and possible VATS therefore she was transferred to [facility] in [place] for cardiothoracic surgery coverage. The etiology of her pleural effusion is unknown. There is some concern for malignancy due to her history of smoking. - ALLERGIES Allergies/Adverse Reactions: Allergies Allergy/AdvReac Type Severity Reaction Status Date / Time adhesive Allergy rash/bliste Verified 01/02/24 16:17 rs codeine [Codeine] Allergy swelling/it Verified 01/02/24 16:17 ch diphenhydramine HCl * Allergy Anxiety Verified 01/02/24 16:17 [From Benadryl] erythromycin base Allergy Unknown Verified 01/02/24 16:17 [From Erythrocin] naproxen Allergy Anxiety Verified 01/02/24 16:17 - MEDICATIONS Home Medications: Ambulatory Orders Medication Instructions Recorded Confirmed Hydrocodone/Acetaminophen 0.5 - 1 each PO Q4H PRN 08/18/13 01/03/24 [Hydrocodon-Acetaminophen 5-500] Multivitamin [Multivitamins] 1 each PO DAILY 08/18/13 01/03/24 hydroCHLOROthiazide [Hydrodiuril] 25 mg PO DAILY 30 Days #30 tablet 04/18/23 01/03/24 Albuterol Sulfate [Proventil Hfa] 2 puffs INH Q6H PRN 01/03/24 01/03/24 Atorvastatin [Lipitor] 20 mg PO QPM 01/03/24 01/03/24 Azelastine HCl [Astepro Allergy] 2 spr JULIANA DAILY 01/03/24 01/03/24 Cyclobenzaprine [Flexeril] 5 - 10 mg PO TID PRN 01/03/24 01/03/24 Fluticasone Propion/Salmeterol 1 puffs INH BID 01/03/24 01/03/24 [Fluticasone-Salmeterol 250-50] Gabapentin [Neurontin] 300 mg PO DAILY 01/03/24 01/03/24 Gabapentin [Neurontin] 600 mg PO HS 01/03/24 01/03/24 Levothyroxine Sodium [Synthroid] 50 mcg PO QDAC 01/03/24 01/03/24 Lidocaine Patch 5% [Lidoderm Patch] 1 each TOP DAILY PRN 01/03/24 01/03/24 Loratadine [Claritin] 10 mg PO DAILY PRN 01/03/24 01/03/24 Losartan [Cozaar] 50 mg PO DAILY 01/03/24 01/03/24 Montelukast [Singulair] 10 mg PO QPM 01/03/24 01/03/24 - PHYSICAL EXAM AT DISCHARGE General Appearance: positive: No acute distress, Alert Respiratory: positive: Chest non-tender, No respiratory distress, Breath sounds nml. negative: Wheezes Cardiovascular: positive: Regular rate & rhythm, No murmur, No gallop Abdomen: positive: Non-tender - LABS Result Diagrams: 01/06/24 05:31 01/06/24 05:31 - DIAGNOSTIC IMAGING Diagnostic Imaging Results: Final report reviewed - TIME SPENT Time Spent in Discharge (Minutes): 35"
== END 2024-01-06 21:15 | disposition short-term general hospital (02) | DRG 187 ==
LOC: EDUNIT# → ED 16:03 → MS2 19:41
PROVIDERS: ADMIT Internal Medicine; ATTEND Family Medicine
PROC: 0W993ZZ Drainage of Right Pleural Cavity, Percutaneous Approach (ICD-10-PCS; principal; 2024-01-03)
PROC: 0W9930Z Drainage of Right Pleural Cavity with Drainage Device, Percutaneous Approach (ICD-10-PCS; 2024-01-03)
DX: J90 Pleural effusion, not elsewhere classified (principal); J98.19 Other pulmonary collapse; J44.9 Chronic obstructive pulmonary disease, unspecified; R09.02 Hypoxemia; I10 Essential (primary) hypertension; M79.7 Fibromyalgia; D64.9 Anemia, unspecified; M19.90 Unspecified osteoarthritis, unspecified site; F41.9 Anxiety disorder, unspecified; F32.A Depression, unspecified; M54.12 Radiculopathy, cervical region; K59.00 Constipation, unspecified; R53.1 Weakness; R53.83 Other fatigue; E87.6 Hypokalemia; Z20.818 Contact with and (suspected) exposure to other bacterial communicable diseases; Z20.822 Contact with and (suspected) exposure to COVID-19; Z20.828 Contact with and (suspected) exposure to other viral communicable diseases; M25.519 Pain in unspecified shoulder; D50.9 Iron deficiency anemia, unspecified; E03.9 Hypothyroidism, unspecified; E78.5 Hyperlipidemia, unspecified; Z79.890 Hormone replacement therapy; Z79.899 Other long term (current) drug therapy; Z87.891 Personal history of nicotine dependence; Z88.5 Allergy status to narcotic agent; Z88.6 Allergy status to analgesic agent; Z88.8 Allergy status to other drugs, medicaments and biological substances; Z91.048 Other nonmedicinal substance allergy status
CPT/HCPCS: 32555; 36415; 71045; 71260; 80048; 80053; 82607; 82746; 82945; 83540; 83615; 83880; 83986; 84145; 84157; 84466; 84484; 85025; 85610; 85730; 87633; 89051; 93005; 94640; 94664; 97162; 97166; 99285; A9270; J1170; J7512; J7626; Q9967; 87070; 87075

== ENCOUNTER 2024-01-23 17:19 | Outpatient (CLI) | payer MEDICARE, MEDICAID | END 2024-01-23 23:59 | disposition short-term general hospital (02) | LOC: EMS 17:19 | DX: R06.09 Other forms of dyspnea (principal); R53.83 Other fatigue; R00.0 Tachycardia, unspecified | CPT/HCPCS: A0425; A0429 ==